=== PATIENT | male | born 1980 | race Caucasian/White ===

== ENCOUNTER 2022-05-24 11:04 | Inpatient (IN) | payer OTHER ==
[2022-05-24 11:43] VITALS: BMI 29.6
[2022-05-24] MEDS ORDERED: LOPERAMIDE HCL 2 MG CAPSULE PO PRN (13:08)
[2022-05-24] MEDS ORDERED: MAG HYDROX/AL HYDROX/SIMETH 30 ML UNIT-DOSE CUP PO PRN (13:08)
[2022-05-24] MEDS ORDERED: BISMUTH SUBSALICYLATE 524 MG/30 ML PO PRN (13:08)
[2022-05-24] MEDS ORDERED: NALOXONE HCL (KLOXXADO) 8 MG SPRAY NS PRN (13:08)
[2022-05-24] MEDS ORDERED: DICYCLOMINE HCL 10 MG CAPSULE PO PRN (13:08)
[2022-05-24] MEDS ORDERED: IBUPROFEN 600 MG TABLET (FP) PO PRN (13:08)
[2022-05-24] MEDS ORDERED: POLYETHYLENE GLYCOL (HEALTHYLAX) 3350 17 GM PACKET PO PRN (13:08)
[2022-05-24] MEDS ORDERED: IBUPROFEN 400 MG TABLET (FP) PO PRN (13:08)
[2022-05-24] MEDS ORDERED: NICOTINE 10 MG CARTRIDGE (INHALER) IH PRN (13:08)
[2022-05-24] MEDS ORDERED: ACETAMINOPHEN 325 MG TABLET (FP) PO PRN ×2 (13:08)
[2022-05-24] MEDS ORDERED: ONDANSETRON *ODT* 4 MG TABLET SL PRN (13:08)
[2022-05-24] MEDS: diazePAM 5 MG TABLET PO PRN (14:26)
[2022-05-24] MEDS ORDERED: diazePAM 5 MG TABLET ONE (14:28)
[2022-05-24] MEDS: diazePAM 5 MG TABLET PO SCH ×2 (17:59→22:24)
[2022-05-24] MEDS: MELATONIN 5 MG TABLETS PO SCH (22:23)
[2022-05-24] MEDS: hydrOXYzine PAMOATE 25 MG CAPSULE (FP) PO PRN (22:23)
[2022-05-24] MEDS: THIAMINE HCL 100 MG TABLET (FP) PO SCH (22:24)
[2022-05-24] MEDS: METHOCARBAMOL 500 MG TABLET PO PRN (22:24)
[2022-05-25] MEDS: diazePAM 5 MG TABLET PO SCH ×4 (05:26→22:34)
[2022-05-25] MEDS: diazePAM 5 MG TABLET PO PRN ×3 (08:44→19:41)
[2022-05-25] MEDS: PRENATAL VITAMINS W/ FOLIC ACID TABLET (FP) PO SCH (10:43)
[2022-05-25] MEDS ORDERED: busPIRone HCL 10 MG TABLET (FP) PO SCH (11:09)
[2022-05-25] MEDS: DEXTROAMPHETAMINE/AMPHETAMINE 10 MG CAP.ER.24H PO SCH (11:21)
[2022-05-25] MEDS: SERTRALINE HCL 50 MG TABLET (FP) PO SCH (11:21)
[2022-05-25] MEDS ORDERED: busPIRone HCL 10 MG TABLET (FP) PO ONE ×2 (11:25→13:00)
[2022-05-25] MEDS: hydrOXYzine PAMOATE 25 MG CAPSULE (FP) PO PRN (13:27)
[2022-05-25] MEDS: ALBUTEROL SO4 HFA INHALER IH PRN ×2 (17:28→22:27)
[2022-05-25] MEDS: MAGNESIUM HYDROX 2400MG/30ML ORAL SUSPENSION 30 ML CUP PO PRN (17:30)
[2022-05-25] MEDS: BENZOCAINE/MENTHOL (CHLORASEPTIC ) LOZENGE MM PRN (19:47)
[2022-05-25] MEDS: METHOCARBAMOL 500 MG TABLET PO PRN (22:30)
[2022-05-25] MEDS: MELATONIN 5 MG TABLETS PO SCH (22:30)
[2022-05-25] MEDS: THIAMINE HCL 100 MG TABLET (FP) PO SCH (22:32)
[2022-05-25] MEDS: busPIRone HCL 10 MG TABLET (FP) PO SCH (22:32)
[2022-05-26] MEDS: diazePAM 5 MG TABLET PO PRN ×4 (00:51→20:57)
[2022-05-26] MEDS: BENZOCAINE/MENTHOL (CHLORASEPTIC ) LOZENGE MM PRN ×3 (00:54→20:35)
[2022-05-26] MEDS: diazePAM 5 MG TABLET PO SCH ×3 (05:18→22:24)
[2022-05-26] MEDS: PRENATAL VITAMINS W/ FOLIC ACID TABLET (FP) PO SCH (10:14)
[2022-05-26] MEDS: DEXTROAMPHETAMINE/AMPHETAMINE 10 MG CAP.ER.24H PO SCH (10:14)
[2022-05-26] MEDS: busPIRone HCL 10 MG TABLET (FP) PO SCH ×2 (10:14→22:23)
[2022-05-26] MEDS: SERTRALINE HCL 50 MG TABLET (FP) PO SCH (10:14)
[2022-05-26] MEDS: hydrOXYzine PAMOATE 25 MG CAPSULE (FP) PO PRN ×2 (10:17→20:28)
[2022-05-26 12:16] LABS: HEMATOCRIT 44.6 % (35.4-49); HEMOGLOBIN 15.1 GM/dL (11.7-16.9); MCH 32.2 pg (25.7-33.7); MCHC 33.9 g/dl (32.0-35.9); MEAN CELL VOLUME 95.1 fl (80-96); PLATELET COUNT 301 10^3/uL (134-434); RBC 4.69 M/mm3 (4.00-5.60); RDW 13.3 % (11.9-15.9); WHITE BLOOD COUNT 6.4 K/mm3 (4.0-10.0)
[2022-05-26 12:51] LABS: ALBUMIN 3.8 g/dl (3.4-5.0)
[2022-05-26 12:52] LABS: BLOOD UREA NITROGEN 10.1 mg/dL (7-18); CALCIUM 9.2 mg/dL (8.5-10.1)
[2022-05-26 12:55] LABS: CREATININE 0.9 mg/dL (0.55-1.3)
[2022-05-26 12:56] LABS: BILIRUBIN,TOTAL 0.3 mg/dL (0.2-1); TOT PROT 7.2 g/dl (6.4-8.2)
[2022-05-26] MEDS: MAGNESIUM HYDROX 2400MG/30ML ORAL SUSPENSION 30 ML CUP PO PRN (16:58)
[2022-05-26] MEDS: guaiFENesin 600 MG TABLET.ER (FP) PO SCH (22:23)
[2022-05-26] MEDS: MELATONIN 5 MG TABLETS PO SCH (22:23)
[2022-05-26] MEDS: THIAMINE HCL 100 MG TABLET (FP) PO SCH (22:24)
[2022-05-26] MEDS: ALBUTEROL SO4 HFA INHALER IH PRN (22:27)
[2022-05-27] MEDS: diazePAM 5 MG TABLET PO PRN ×3 (01:06→11:59)
[2022-05-27] MEDS: BENZOCAINE/MENTHOL (CHLORASEPTIC ) LOZENGE MM PRN ×4 (01:06→22:26)
[2022-05-27] MEDS: diazePAM 5 MG TABLET PO SCH ×2 (05:31→17:43)
[2022-05-27] MEDS: MAGNESIUM HYDROX 2400MG/30ML ORAL SUSPENSION 30 ML CUP PO PRN (07:51)
[2022-05-27] MEDS: SERTRALINE HCL 50 MG TABLET (FP) PO SCH (10:22)
[2022-05-27] MEDS: busPIRone HCL 10 MG TABLET (FP) PO SCH ×2 (10:22→22:22)
[2022-05-27] MEDS: DEXTROAMPHETAMINE/AMPHETAMINE 10 MG CAP.ER.24H PO SCH (10:22)
[2022-05-27] MEDS: PRENATAL VITAMINS W/ FOLIC ACID TABLET (FP) PO SCH (10:22)
[2022-05-27] MEDS: guaiFENesin 600 MG TABLET.ER (FP) PO SCH ×2 (10:22→22:22)
[2022-05-27] MEDS: ALBUTEROL SO4 HFA INHALER IH PRN ×2 (11:58→22:25)
[2022-05-27 15:15] LABS: EPI CELLS 20 /uL (0-25.1); HYALINE CASTS 4 /uL (0-3.1); PH,URINE 8.5 (5.0-8.0); URINE APPEARANCE CLEAR; URINE BACTERIA 47 /uL (0-1359); URINE BILIRUBIN NEGATIVE (NEGATIVE); URINE COLOR YELLOW; URINE GLUCOSE (UA) NEGATIVE (NEGATIVE); URINE KETONE NEGATIVE (NEGATIVE); URINE LEUK ESTERASE NEGATIVE (NEGATIVE); URINE NITRITE NEGATIVE (NEGATIVE); URINE PROTEIN 1+ (NEGATIVE); URINE RBC 10 /uL (0-23.9); URINE UROBILINOGEN 0.2 mg/dL (0.2-1.0); URINE WBC 36 /uL (0-25.8)
[2022-05-27] MEDS: hydrOXYzine PAMOATE 25 MG CAPSULE (FP) PO PRN (17:46)
[2022-05-27 18:00] VITALS: RESP 19
[2022-05-27 19:51] LABS: URINE APPEARANCE CLEAR; URINE BILIRUBIN NEGATIVE (NEGATIVE); URINE COLOR YELLOW; URINE GLUCOSE (UA) NEGATIVE (NEGATIVE); URINE KETONE NEGATIVE (NEGATIVE); URINE LEUK ESTERASE NEGATIVE (NEGATIVE); URINE NITRITE NEGATIVE (NEGATIVE); URINE PROTEIN NEGATIVE (NEGATIVE); URINE UROBILINOGEN 0.2 mg/dL (0.2-1.0)
[2022-05-27] MEDS ORDERED: HYDROCORTISONE ACETATE 25 MG/SUPP.RECT RC SCH (22:00)
[2022-05-27] MEDS: THIAMINE HCL 100 MG TABLET (FP) PO SCH (22:23)
[2022-05-27] MEDS: MELATONIN 5 MG TABLETS PO SCH (22:23)
[2022-05-28] MEDS: hydrOXYzine PAMOATE 25 MG CAPSULE (FP) PO PRN (05:35)
[2022-05-28 05:50] VITALS: BP 128/70; PULSE 67; TEMP 96.8
[2022-05-28] MEDS ORDERED: diazePAM 5 MG TABLET PO ONE (06:00)
[2022-05-28] MEDS: DEXTROAMPHETAMINE/AMPHETAMINE 10 MG CAP.ER.24H PO SCH (09:05)
[2022-05-28] MEDS: guaiFENesin 600 MG TABLET.ER (FP) PO SCH (09:06)
[2022-05-28] MEDS: SERTRALINE HCL 50 MG TABLET (FP) PO SCH (09:06)
[2022-05-28] MEDS: PRENATAL VITAMINS W/ FOLIC ACID TABLET (FP) PO SCH (09:06)
[2022-05-28] MEDS: BENZOCAINE/MENTHOL (CHLORASEPTIC ) LOZENGE MM PRN (09:11)
== END 2022-05-28 09:13 | disposition home or self-care (01) | DRG 897 ==
LOC: YASAS 11:04 → Y3N 13:46
PROVIDERS: ADMIT Allergy & Immunology; ATTEND Surgery
PROC: HZ2ZZZZ Detoxification Services for Substance Abuse Treatment (ICD-10-PCS; principal; 2022-05-24)
DX: F10.230 Alcohol dependence with withdrawal, uncomplicated (principal); F13.20 Sedative, hypnotic or anxiolytic dependence, uncomplicated; F14.20 Cocaine dependence, uncomplicated; F12.20 Cannabis dependence, uncomplicated; F32.A Depression, unspecified; F90.9 Attention-deficit hyperactivity disorder, unspecified type; F43.10 Post-traumatic stress disorder, unspecified; J45.909 Unspecified asthma, uncomplicated; R63.4 Abnormal weight loss; Z68.29 Body mass index [BMI] 29.0-29.9, adult
CPT/HCPCS: 36415; 80053; 81003; 83036; 85027; 86780; 87811; 93005; 93010; C9803-CS; U0003; U0005

== ENCOUNTER 2022-08-20 11:21 | Inpatient (IN) | payer OTHER ==
[2022-08-20 11:44] VITALS: BMI 30.4
[2022-08-20] MEDS ORDERED: ONDANSETRON *ODT* 4 MG TABLET SL PRN (12:30)
[2022-08-20] MEDS ORDERED: IBUPROFEN 600 MG TABLET (FP) PO PRN (12:30)
[2022-08-20] MEDS ORDERED: MAG HYDROX/AL HYDROX/SIMETH 30 ML UNIT-DOSE CUP PO PRN (12:30)
[2022-08-20] MEDS ORDERED: ACETAMINOPHEN 325 MG TABLET (FP) PO PRN (12:30)
[2022-08-20] MEDS ORDERED: BENZONATATE 200 MG CAPSULE PO PRN (12:30)
[2022-08-20] MEDS ORDERED: guaiFENesin 600 MG TABLET.ER (FP) PO PRN (12:30)
[2022-08-20] MEDS ORDERED: NALOXONE HCL 0.4 MG/ML VIAL IM PRN (12:30)
[2022-08-20] MEDS ORDERED: chlordiazePOXIDE HCL 25 MG CAPSULE PO ONE (12:30)
[2022-08-20] MEDS ORDERED: DICYCLOMINE HCL 10 MG CAPSULE PO PRN (12:30)
[2022-08-20] MEDS ORDERED: NALOXONE HCL (KLOXXADO) 8 MG SPRAY NS PRN (12:30)
[2022-08-20] MEDS ORDERED: NICOTINE 10 MG CARTRIDGE (INHALER) IH PRN (12:30)
[2022-08-20] MEDS ORDERED: BISMUTH SUBSALICYLATE 524 MG/30 ML PO PRN (12:30)
[2022-08-20] MEDS ORDERED: IBUPROFEN 400 MG TABLET (FP) PO PRN (12:30)
[2022-08-20] MEDS ORDERED: POLYETHYLENE GLYCOL (HEALTHYLAX) 3350 17 GM PACKET PO PRN (12:30)
[2022-08-20] MEDS ORDERED: LOPERAMIDE HCL 2 MG CAPSULE PO PRN (12:30)
[2022-08-20] MEDS ORDERED: COLLOIDAL OATMEAL 1 BAR EACH TP PRN (12:30)
[2022-08-20] MEDS ORDERED: AMMONIUM LACTATE 12% LOTION 225 GM BOTTLE TP PRN (12:30)
[2022-08-20] MEDS ORDERED: ONDANSETRON *ODT* 4 MG TABLET ONE (12:38)
[2022-08-20] MEDS ORDERED: chlordiazePOXIDE HCL 25 MG CAPSULE ONE (12:54)
[2022-08-20] MEDS: ALBUTEROL SO4 HFA INHALER IH SCH ×3 (13:24→23:05)
[2022-08-20] MEDS ORDERED: DIVALPROEX SODIUM 500 MG TABLET E.C. PO ONE ×2 (15:43→22:00)
[2022-08-20 16:01] LABS: HEMATOCRIT 47.5 % (35.4-49); MCH 31.4 pg (25.7-33.7); MCHC 33.7 g/dl (32.0-35.9); MEAN CELL VOLUME 93.2 fl (80-96); MEAN PLT VOLUME 9.4 fl (7.5-11.1); PLATELET COUNT 286 10^3/uL (134-434); RBC 5.09 M/mm3 (4.00-5.60); RDW 14.2 % (11.9-15.9); WHITE BLOOD COUNT 5.1 K/mm3 (4.0-10.0)
[2022-08-20 16:14] LABS: POTASSIUM 3.9 mmol/L (3.5-5.1)
[2022-08-20 16:18] LABS: ALBUMIN 3.4 g/dl (3.4-5.0); BLOOD UREA NITROGEN 6.5 mg/dL (7-18)
[2022-08-20 16:21] LABS: CREATININE 0.8 mg/dL (0.55-1.3)
[2022-08-20 16:22] LABS: BILIRUBIN,TOTAL 0.6 mg/dL (0.2-1)
[2022-08-20 16:23] LABS: TOT PROT 6.9 g/dl (6.4-8.2)
[2022-08-20] MEDS: chlordiazePOXIDE HCL 25 MG CAPSULE PO SCH ×2 (17:46→23:04)
[2022-08-20] MEDS: THIAMINE HCL 100 MG TABLET (FP) PO SCH (23:04)
[2022-08-20] MEDS: MELATONIN 5 MG TABLETS PO SCH (23:06)
[2022-08-21] MEDS: ALBUTEROL SO4 HFA INHALER IH SCH ×6 (01:21→22:18)
[2022-08-21] MEDS: chlordiazePOXIDE HCL 25 MG CAPSULE PO SCH ×5 (05:44→22:22)
[2022-08-21] MEDS ORDERED: SERTRALINE HCL 50 MG TABLET (FP) PO SCH (10:00)
[2022-08-21] MEDS: PRENATAL VITAMINS W/ FOLIC ACID TABLET (FP) PO SCH (10:27)
[2022-08-21] MEDS: DEXTROAMPHETAMINE/AMPHETAMINE 10 MG CAP.ER.24H PO SCH (10:28)
[2022-08-21] MEDS ORDERED: TOLNAFTATE 1% CREAM 15 GM TUBE TP SCH ×2 (11:56→22:00)
[2022-08-21] MEDS ORDERED: chlordiazePOXIDE HCL 25 MG CAPSULE PO ONE (12:13)
[2022-08-21] MEDS: LACTULOSE 20 GM/30 ML UDC (FOR ORAL USE ONLY) PO SCH ×2 (14:38→22:18)
[2022-08-21] MEDS ORDERED: LORazepam 2 MG TABLET PO SCH (17:00)
[2022-08-21] MEDS ORDERED: LORazepam 1 MG TABLET PO PRN (17:06)
[2022-08-21] MEDS: METHOCARBAMOL 500 MG TABLET PO PRN (17:58)
[2022-08-21] MEDS: BENZOCAINE/MENTHOL (CHLORASEPTIC ) LOZENGE MM PRN ×2 (18:02→22:21)
[2022-08-21] MEDS: chlordiazePOXIDE HCL 25 MG CAPSULE PO PRN (20:36)
[2022-08-21] MEDS: THIAMINE HCL 100 MG TABLET (FP) PO SCH (22:19)
[2022-08-21] MEDS: DIVALPROEX SODIUM 500 MG TABLET E.C. PO SCH (22:19)
[2022-08-21] MEDS: TOLNAFTATE 1% CREAM 15 GM TUBE TP SCH (22:19)
[2022-08-21] MEDS: MELATONIN 5 MG TABLETS PO SCH (22:19)
[2022-08-22] MEDS: ALBUTEROL SO4 HFA INHALER IH SCH ×3 (01:34→10:32)
[2022-08-22] MEDS ORDERED: chlordiazePOXIDE HCL 25 MG CAPSULE PO SCH (05:00)
[2022-08-22] MEDS: chlordiazePOXIDE HCL 25 MG CAPSULE PO SCH ×4 (05:46→22:34)
[2022-08-22] MEDS: LACTULOSE 20 GM/30 ML UDC (FOR ORAL USE ONLY) PO SCH ×3 (05:47→22:33)
[2022-08-22] MEDS ORDERED: ERGOCALCIFEROL (VIT D2) 50,000 UNIT (1.25 MG) CAPSULE PO ONE (09:37)
[2022-08-22] MEDS: PRENATAL VITAMINS W/ FOLIC ACID TABLET (FP) PO SCH (10:32)
[2022-08-22] MEDS: SERTRALINE HCL 50 MG TABLET (FP) PO SCH (10:32)
[2022-08-22] MEDS: TOLNAFTATE 1% CREAM 15 GM TUBE TP SCH ×2 (10:32→22:34)
[2022-08-22] MEDS: DEXTROAMPHETAMINE/AMPHETAMINE 10 MG CAP.ER.24H PO SCH (10:33)
[2022-08-22] MEDS ORDERED: ALBUTEROL SO4 HFA INHALER IH PRN (12:07)
[2022-08-22] MEDS: MAGNESIUM HYDROX 2400MG/30ML ORAL SUSPENSION 30 ML CUP PO PRN ×2 (13:24→19:12)
[2022-08-22] MEDS ORDERED: HYDROCORTISONE ACETATE 25 MG/SUPP.RECT RC ONE (13:41)
[2022-08-22] MEDS: KETOCONAZOLE 2% CREAM - 60GM TUBE TP SCH (14:56)
[2022-08-22 16:01] LABS: HIV INTERPRETATION NEGATIVE (NEGATIVE)
[2022-08-22] MEDS: METHOCARBAMOL 500 MG TABLET PO PRN (19:16)
[2022-08-22] MEDS: hydrOXYzine PAMOATE 25 MG CAPSULE (FP) PO PRN (19:16)
[2022-08-22] MEDS: chlordiazePOXIDE HCL 25 MG CAPSULE PO PRN (20:04)
[2022-08-22] MEDS: THIAMINE HCL 100 MG TABLET (FP) PO SCH (22:33)
[2022-08-22] MEDS: MELATONIN 5 MG TABLETS PO SCH (22:33)
[2022-08-22] MEDS: DIVALPROEX SODIUM 500 MG TABLET E.C. PO SCH (22:33)
[2022-08-23] MEDS ORDERED: LORazepam 1 MG TABLET PO SCH (05:00)
[2022-08-23] MEDS ORDERED: chlordiazePOXIDE HCL 10 MG CAPSULE PO SCH (05:00)
[2022-08-23] MEDS: chlordiazePOXIDE HCL 10 MG CAPSULE PO SCH ×4 (05:38→22:31)
[2022-08-23] MEDS: LACTULOSE 20 GM/30 ML UDC (FOR ORAL USE ONLY) PO SCH ×3 (05:38→22:29)
[2022-08-23] MEDS: chlordiazePOXIDE HCL 25 MG CAPSULE PO PRN ×2 (08:42→19:15)
[2022-08-23] MEDS: DEXTROAMPHETAMINE/AMPHETAMINE 10 MG CAP.ER.24H PO SCH (10:39)
[2022-08-23] MEDS: PRENATAL VITAMINS W/ FOLIC ACID TABLET (FP) PO SCH (10:39)
[2022-08-23] MEDS: SERTRALINE HCL 50 MG TABLET (FP) PO SCH (10:39)
[2022-08-23] MEDS: TOLNAFTATE 1% CREAM 15 GM TUBE TP SCH ×2 (10:42→22:38)
[2022-08-23] MEDS: KETOCONAZOLE 2% CREAM - 60GM TUBE TP SCH (10:42)
[2022-08-23] MEDS ORDERED: PNEUMOC 20-VAL CONJ-DIP CRM/PF 0.5 ML SYRINGE IM ONE (12:00)
[2022-08-23] MEDS: MAGNESIUM HYDROX 2400MG/30ML ORAL SUSPENSION 30 ML CUP PO PRN ×2 (13:22→18:44)
[2022-08-23] MEDS: hydrOXYzine PAMOATE 25 MG CAPSULE (FP) PO PRN ×2 (17:15→22:32)
[2022-08-23] MEDS: METHOCARBAMOL 500 MG TABLET PO PRN (17:15)
[2022-08-23] MEDS: MELATONIN 5 MG TABLETS PO SCH (22:30)
[2022-08-23] MEDS: DIVALPROEX SODIUM 500 MG TABLET E.C. PO SCH (22:30)
[2022-08-23] MEDS: THIAMINE HCL 100 MG TABLET (FP) PO SCH (22:30)
[2022-08-24] MEDS ORDERED: LORazepam 0.5 MG TABLET PO PRN
[2022-08-24] MEDS ORDERED: LORazepam 0.5 MG TABLET PO SCH (05:00)
[2022-08-24] MEDS ORDERED: chlordiazePOXIDE HCL 10 MG CAPSULE PO SCH (05:00)
[2022-08-24] MEDS: LACTULOSE 20 GM/30 ML UDC (FOR ORAL USE ONLY) PO SCH ×3 (05:47→21:43)
[2022-08-24] MEDS: chlordiazePOXIDE HCL 10 MG CAPSULE PO SCH ×2 (05:47→18:03)
[2022-08-24] MEDS: chlordiazePOXIDE HCL 10 MG CAPSULE PO PRN ×3 (08:27→19:51)
[2022-08-24] MEDS: MAGNESIUM HYDROX 2400MG/30ML ORAL SUSPENSION 30 ML CUP PO PRN (08:32)
[2022-08-24] MEDS: BENZOCAINE/MENTHOL (CHLORASEPTIC ) LOZENGE MM PRN ×2 (08:32→19:59)
[2022-08-24] MEDS: hydrOXYzine PAMOATE 25 MG CAPSULE (FP) PO PRN ×2 (10:04→21:44)
[2022-08-24] MEDS: METHOCARBAMOL 500 MG TABLET PO PRN ×2 (10:04→21:45)
[2022-08-24] MEDS: PRENATAL VITAMINS W/ FOLIC ACID TABLET (FP) PO SCH (10:04)
[2022-08-24] MEDS: DEXTROAMPHETAMINE/AMPHETAMINE 10 MG CAP.ER.24H PO SCH (10:04)
[2022-08-24] MEDS: SERTRALINE HCL 50 MG TABLET (FP) PO SCH (10:04)
[2022-08-24] MEDS: KETOCONAZOLE 2% CREAM - 60GM TUBE TP SCH (10:05)
[2022-08-24] MEDS: TOLNAFTATE 1% CREAM 15 GM TUBE TP SCH ×2 (10:33→21:49)
[2022-08-24] MEDS: THIAMINE HCL 100 MG TABLET (FP) PO SCH (21:44)
[2022-08-24] MEDS: DIVALPROEX SODIUM 500 MG TABLET E.C. PO SCH (21:44)
[2022-08-24] MEDS: MELATONIN 5 MG TABLETS PO SCH (21:49)
[2022-08-25] MEDS ORDERED: LORazepam 0.5 MG TABLET PO ONE (05:00)
[2022-08-25] MEDS ORDERED: chlordiazePOXIDE HCL 10 MG CAPSULE PO ONE ×2 (05:00)
[2022-08-25] MEDS: LACTULOSE 20 GM/30 ML UDC (FOR ORAL USE ONLY) PO SCH ×2 (05:46→13:52)
[2022-08-25] MEDS: MAGNESIUM HYDROX 2400MG/30ML ORAL SUSPENSION 30 ML CUP PO PRN (08:46)
[2022-08-25 08:54] VITALS: RESP 18
[2022-08-25] MEDS: SERTRALINE HCL 50 MG TABLET (FP) PO SCH (09:47)
[2022-08-25] MEDS: METHOCARBAMOL 500 MG TABLET PO PRN (09:47)
[2022-08-25] MEDS: hydrOXYzine PAMOATE 25 MG CAPSULE (FP) PO PRN (09:47)
[2022-08-25] MEDS: DEXTROAMPHETAMINE/AMPHETAMINE 10 MG CAP.ER.24H PO SCH (09:47)
[2022-08-25] MEDS: PRENATAL VITAMINS W/ FOLIC ACID TABLET (FP) PO SCH (09:48)
[2022-08-25] MEDS: TOLNAFTATE 1% CREAM 15 GM TUBE TP SCH (09:49)
[2022-08-25] MEDS: KETOCONAZOLE 2% CREAM - 60GM TUBE TP SCH (09:49)
[2022-08-25 13:13] VITALS: BP 121/76; PULSE 78; TEMP 97.4
== END 2022-08-25 16:45 | disposition home or self-care (01) | DRG 897 ==
LOC: YASAS 11:21 → Y3N 12:33
PROVIDERS: ADMIT Allergy & Immunology; ATTEND Surgery
PROC: HZ2ZZZZ Detoxification Services for Substance Abuse Treatment (ICD-10-PCS; principal; 2022-08-20)
DX: F10.230 Alcohol dependence with withdrawal, uncomplicated (principal); F31.9 Bipolar disorder, unspecified; F19.24 Other psychoactive substance dependence with psychoactive substance-induced mood disorder; F90.9 Attention-deficit hyperactivity disorder, unspecified type; B35.3 Tinea pedis; B35.4 Tinea corporis; E78.5 Hyperlipidemia, unspecified; R79.89 Other specified abnormal findings of blood chemistry; Z86.59 Personal history of other mental and behavioral disorders; Z86.79 Personal history of other diseases of the circulatory system
CPT/HCPCS: 36415; 80053; 80164; 82140; 85027; 86780; 87389; 87491; 87522; 87591; 87661; 90677; C9803-CS; Q0162; U0003; U0005

== ENCOUNTER 2022-09-24 16:27 | Inpatient (IN) | payer OTHER ==
[2022-09-24 16:57] VITALS: BMI 28.4
[2022-09-24] MEDS ORDERED: ONDANSETRON *ODT* 4 MG TABLET SL PRN (19:38)
[2022-09-24] MEDS ORDERED: ACETAMINOPHEN 325 MG TABLET (FP) PO PRN (19:38)
[2022-09-24] MEDS ORDERED: BENZOCAINE/MENTHOL (CHLORASEPTIC ) LOZENGE MM PRN (19:38)
[2022-09-24] MEDS ORDERED: IBUPROFEN 600 MG TABLET (FP) PO PRN (19:38)
[2022-09-24] MEDS ORDERED: NALOXONE HCL 0.4 MG/ML VIAL IM PRN (19:38)
[2022-09-24] MEDS ORDERED: NALOXONE HCL (KLOXXADO) 8 MG SPRAY NS PRN (19:38)
[2022-09-24] MEDS ORDERED: DICYCLOMINE HCL 10 MG CAPSULE PO PRN (19:38)
[2022-09-24] MEDS ORDERED: POLYETHYLENE GLYCOL (HEALTHYLAX) 3350 17 GM PACKET PO PRN (19:38)
[2022-09-24] MEDS ORDERED: LOPERAMIDE HCL 2 MG CAPSULE PO PRN (19:38)
[2022-09-24] MEDS ORDERED: BISMUTH SUBSALICYLATE 524 MG/30 ML PO PRN (19:38)
[2022-09-24] MEDS ORDERED: NICOTINE 10 MG CARTRIDGE (INHALER) IH PRN (19:38)
[2022-09-24] MEDS ORDERED: IBUPROFEN 400 MG TABLET (FP) PO PRN (19:38)
[2022-09-24] MEDS ORDERED: MAG HYDROX/AL HYDROX/SIMETH 30 ML UNIT-DOSE CUP PO PRN (19:38)
[2022-09-24] MEDS ORDERED: hydrOXYzine PAMOATE 25 MG CAPSULE (FP) PO ONE (20:15)
[2022-09-24] MEDS ORDERED: chlordiazePOXIDE HCL 25 MG CAPSULE ONE (20:15)
[2022-09-24] MEDS: hydrOXYzine PAMOATE 25 MG CAPSULE (FP) PO PRN (20:17)
[2022-09-24] MEDS: chlordiazePOXIDE HCL 25 MG CAPSULE PO PRN (20:17)
[2022-09-24] MEDS: chlordiazePOXIDE HCL 25 MG CAPSULE PO SCH (22:08)
[2022-09-24] MEDS: MELATONIN 5 MG TABLETS PO SCH (22:08)
[2022-09-24] MEDS: THIAMINE HCL 100 MG TABLET (FP) PO SCH (22:08)
[2022-09-24] MEDS: METHOCARBAMOL 500 MG TABLET PO PRN (22:09)
[2022-09-25] MEDS: chlordiazePOXIDE HCL 25 MG CAPSULE PO SCH ×4 (05:25→22:10)
[2022-09-25] MEDS: hydrOXYzine PAMOATE 25 MG CAPSULE (FP) PO PRN ×2 (05:26→22:14)
[2022-09-25] MEDS: chlordiazePOXIDE HCL 25 MG CAPSULE PO PRN ×3 (08:33→19:33)
[2022-09-25] MEDS: PRENATAL VITAMINS W/ FOLIC ACID TABLET (FP) PO SCH (10:15)
[2022-09-25 12:02] LABS: HEMATOCRIT 44.2 % (35.4-49); MCH 31.8 pg (25.7-33.7); MCHC 33.9 g/dl (32.0-35.9); MEAN CELL VOLUME 93.9 fl (80-96); MEAN PLT VOLUME 9.9 fl (7.5-11.1); PLATELET COUNT 275 10^3/uL (134-434); RBC 4.71 M/mm3 (4.00-5.60)
[2022-09-25 12:35] LABS: POTASSIUM 4.2 mmol/L (3.5-5.1)
[2022-09-25 12:38] LABS: ALBUMIN 2.9 g/dl (3.4-5.0); CALCIUM 8.7 mg/dL (8.5-10.1)
[2022-09-25 12:41] LABS: CREATININE 0.9 mg/dL (0.55-1.3)
[2022-09-25 12:43] LABS: BILIRUBIN,TOTAL 0.3 mg/dL (0.2-1); TOT PROT 6.1 g/dl (6.4-8.2)
[2022-09-25 15:56] LABS: HIV INTERPRETATION NEGATIVE (NEGATIVE)
[2022-09-25] MEDS: BENZONATATE 200 MG CAPSULE PO PRN (17:28)
[2022-09-25] MEDS: ALBUTEROL SO4 HFA INHALER IH PRN (17:30)
[2022-09-25] MEDS: MAGNESIUM HYDROX 2400MG/30ML ORAL SUSPENSION 30 ML CUP PO PRN (18:28)
[2022-09-25] MEDS: TOLNAFTATE 1% CREAM 15 GM TUBE TP SCH (22:09)
[2022-09-25] MEDS: GABAPENTIN 300 MG CAPSULE PO SCH (22:11)
[2022-09-25] MEDS: THIAMINE HCL 100 MG TABLET (FP) PO SCH (22:11)
[2022-09-25] MEDS: MELATONIN 5 MG TABLETS PO SCH (22:11)
[2022-09-25] MEDS: guaiFENesin 600 MG TABLET.ER (FP) PO PRN (22:11)
[2022-09-25] MEDS: METHOCARBAMOL 500 MG TABLET PO PRN (22:14)
[2022-09-26] MEDS: chlordiazePOXIDE HCL 25 MG CAPSULE PO SCH ×4 (05:22→22:15)
[2022-09-26] MEDS: chlordiazePOXIDE HCL 25 MG CAPSULE PO PRN ×3 (08:35→19:41)
[2022-09-26] MEDS ORDERED: DEXTROAMPHETAMINE/AMPHETAMINE 10 MG CAP.ER.24H PO SCH (10:00)
[2022-09-26] MEDS: TOLNAFTATE 1% CREAM 15 GM TUBE TP SCH ×2 (10:11→22:14)
[2022-09-26] MEDS: SERTRALINE HCL 50 MG TABLET (FP) PO SCH (10:12)
[2022-09-26] MEDS: PRENATAL VITAMINS W/ FOLIC ACID TABLET (FP) PO SCH (10:12)
[2022-09-26] MEDS: DEXTROAMPHETAMINE/AMPHETAMINE 10 MG CAP.ER.24H PO SCH (10:12)
[2022-09-26] MEDS: guaiFENesin 600 MG TABLET.ER (FP) PO PRN ×2 (10:15→19:24)
[2022-09-26] MEDS: MAGNESIUM HYDROX 2400MG/30ML ORAL SUSPENSION 30 ML CUP PO PRN (10:46)
[2022-09-26] MEDS: ALBUTEROL SO4 HFA INHALER IH PRN ×2 (10:46→19:42)
[2022-09-26] MEDS: BENZONATATE 200 MG CAPSULE PO PRN ×2 (10:46→19:24)
[2022-09-26] MEDS: BUDESONIDE/FORMETEROL FUMARATE 80/4.5 mcg INHALER IH SCH ×2 (10:52→22:15)
[2022-09-26] MEDS: hydrOXYzine PAMOATE 25 MG CAPSULE (FP) PO PRN ×2 (13:55→22:13)
[2022-09-26] MEDS: LACTULOSE 20 GM/30 ML UDC (FOR ORAL USE ONLY) PO SCH ×2 (14:52→22:15)
[2022-09-26] MEDS ORDERED: BENZOCAINE/MENTH/CETYLPYRD CL 1 EACH LOZENGE MM PRN (19:56)
[2022-09-26] MEDS ORDERED: HYDROCORTISONE ACETATE 25 MG/SUPP.RECT RC SCH (22:00)
[2022-09-26] MEDS: METHOCARBAMOL 500 MG TABLET PO PRN (22:13)
[2022-09-26] MEDS: MELATONIN 5 MG TABLETS PO SCH (22:15)
[2022-09-26] MEDS: GABAPENTIN 300 MG CAPSULE PO SCH (22:15)
[2022-09-26] MEDS: THIAMINE HCL 100 MG TABLET (FP) PO SCH (22:15)
[2022-09-27] MEDS: chlordiazePOXIDE HCL 10 MG CAPSULE PO PRN ×2 (00:40→13:23)
[2022-09-27] MEDS: chlordiazePOXIDE HCL 10 MG CAPSULE PO SCH ×3 (05:22→17:34)
[2022-09-27] MEDS: LACTULOSE 20 GM/30 ML UDC (FOR ORAL USE ONLY) PO SCH ×2 (05:22→13:35)
[2022-09-27 08:59] VITALS: RESP 18
[2022-09-27] MEDS: SERTRALINE HCL 50 MG TABLET (FP) PO SCH (10:06)
[2022-09-27] MEDS: DEXTROAMPHETAMINE/AMPHETAMINE 10 MG CAP.ER.24H PO SCH (10:06)
[2022-09-27] MEDS: BUDESONIDE/FORMETEROL FUMARATE 80/4.5 mcg INHALER IH SCH (10:06)
[2022-09-27] MEDS: ALBUTEROL SO4 HFA INHALER IH PRN (10:06)
[2022-09-27] MEDS: PRENATAL VITAMINS W/ FOLIC ACID TABLET (FP) PO SCH (10:07)
[2022-09-27] MEDS: TOLNAFTATE 1% CREAM 15 GM TUBE TP SCH (10:07)
[2022-09-27] MEDS ORDERED: BENZONATATE 200 MG CAPSULE PO PRN (13:23)
[2022-09-27] MEDS: METHOCARBAMOL 500 MG TABLET PO PRN (13:23)
[2022-09-27] MEDS: hydrOXYzine PAMOATE 25 MG CAPSULE (FP) PO PRN (13:23)
[2022-09-27] MEDS: MAGNESIUM HYDROX 2400MG/30ML ORAL SUSPENSION 30 ML CUP PO PRN (15:12)
[2022-09-27] MEDS ORDERED: TOLNAFTATE 1% CREAM 15 GM TUBE TP SCH (15:19)
[2022-09-27] MEDS ORDERED: guaiFENesin 600 MG TABLET.ER (FP) PO SCH ×2 (15:30→22:00)
[2022-09-27 21:16] VITALS: BP 139/82; PULSE 80; TEMP 97.3
[2022-09-28] MEDS ORDERED: chlordiazePOXIDE HCL 10 MG CAPSULE PO SCH (05:00)
[2022-09-29] MEDS ORDERED: chlordiazePOXIDE HCL 10 MG CAPSULE PO ONE (05:00)
== END 2022-09-27 19:35 | disposition left against medical advice (07) | DRG 894 ==
LOC: YASAS 16:27 → Y3N 20:18
PROVIDERS: ADMIT Allergy & Immunology; ATTEND Surgery
PROC: HZ2ZZZZ Detoxification Services for Substance Abuse Treatment (ICD-10-PCS; principal; 2022-09-24)
DX: F10.230 Alcohol dependence with withdrawal, uncomplicated (principal); F13.20 Sedative, hypnotic or anxiolytic dependence, uncomplicated; F14.20 Cocaine dependence, uncomplicated; F12.10 Cannabis abuse, uncomplicated; F19.24 Other psychoactive substance dependence with psychoactive substance-induced mood disorder; F25.9 Schizoaffective disorder, unspecified; F43.10 Post-traumatic stress disorder, unspecified; G47.00 Insomnia, unspecified; R79.89 Other specified abnormal findings of blood chemistry; Z86.79 Personal history of other diseases of the circulatory system; Z87.891 Personal history of nicotine dependence; Z91.199 Patient's noncompliance with other medical treatment and regimen due to unspecified reason
CPT/HCPCS: 26055; 36415; 80053; 82140; 85027; 86780; 86803; 87389; 87491; 87591; 87635; 87661; 87811

== ENCOUNTER 2022-12-13 12:46 | Inpatient (IN) | payer OTHER ==
[2022-12-13 13:54] VITALS: BMI 33.1
[2022-12-13] MEDS ORDERED: DICYCLOMINE HCL 10 MG CAPSULE PO PRN (14:54)
[2022-12-13] MEDS ORDERED: NALOXONE HCL (KLOXXADO) 8 MG SPRAY NS PRN (14:54)
[2022-12-13] MEDS ORDERED: BENZONATATE 200 MG CAPSULE PO PRN (14:54)
[2022-12-13] MEDS ORDERED: guaiFENesin 600 MG TABLET.ER (FP) PO PRN (14:54)
[2022-12-13] MEDS ORDERED: ACETAMINOPHEN 325 MG TABLET (FP) PO PRN (14:54)
[2022-12-13] MEDS ORDERED: POLYETHYLENE GLYCOL (HEALTHYLAX) 3350 17 GM PACKET PO PRN (14:54)
[2022-12-13] MEDS ORDERED: ONDANSETRON *ODT* 4 MG TABLET SL PRN (14:54)
[2022-12-13] MEDS ORDERED: NALOXONE HCL 0.4 MG/ML VIAL IM PRN (14:54)
[2022-12-13] MEDS ORDERED: IBUPROFEN 600 MG TABLET (FP) PO PRN (14:54)
[2022-12-13] MEDS ORDERED: LOPERAMIDE HCL 2 MG CAPSULE PO PRN (14:54)
[2022-12-13] MEDS ORDERED: IBUPROFEN 400 MG TABLET (FP) PO PRN (14:54)
[2022-12-13] MEDS ORDERED: BISMUTH SUBSALICYLATE 524 MG/30 ML PO PRN (14:54)
[2022-12-13] MEDS ORDERED: chlordiazePOXIDE HCL 25 MG CAPSULE ONE (16:38)
[2022-12-13] MEDS: chlordiazePOXIDE HCL 25 MG CAPSULE PO SCH ×2 (16:41→22:28)
[2022-12-13] MEDS: chlordiazePOXIDE HCL 25 MG CAPSULE PO PRN (19:40)
[2022-12-13] MEDS: MELATONIN 5 MG TABLETS PO SCH (22:28)
[2022-12-13] MEDS: THIAMINE HCL 100 MG TABLET (FP) PO SCH (22:28)
[2022-12-13] MEDS: BUDESONIDE/FORMETEROL FUMARATE 80/4.5 mcg INHALER IH SCH (22:30)
[2022-12-14] MEDS: chlordiazePOXIDE HCL 25 MG CAPSULE PO SCH ×4 (04:00→23:06)
[2022-12-14] MEDS: METHOCARBAMOL 500 MG TABLET PO PRN ×2 (04:01→23:06)
[2022-12-14] MEDS: hydrOXYzine PAMOATE 25 MG CAPSULE (FP) PO PRN ×2 (04:01→20:38)
[2022-12-14] MEDS: MAGNESIUM HYDROX 2400MG/30ML ORAL SUSPENSION 30 ML CUP PO PRN ×2 (04:06→23:11)
[2022-12-14] MEDS: PRENATAL VITAMINS W/ FOLIC ACID TABLET (FP) PO SCH (10:32)
[2022-12-14] MEDS: BUDESONIDE/FORMETEROL FUMARATE 80/4.5 mcg INHALER IH SCH ×2 (10:32→23:07)
[2022-12-14] MEDS: CLOTRIMAZOLE 1% CREAM TP SCH ×2 (10:38→23:07)
[2022-12-14 11:55] LABS: POTASSIUM 4.3 mmol/L (3.5-5.1)
[2022-12-14 11:57] LABS: HEMATOCRIT 38.5 % (35.4-49); HEMOGLOBIN 13.6 GM/dL (11.7-16.9); MCH 32.5 pg (25.7-33.7); MCHC 35.3 g/dl (32.0-35.9); MEAN CELL VOLUME 92.1 fl (80-96); MEAN PLT VOLUME 9.5 fl (7.5-11.1); PLATELET COUNT 176 10^3/uL (134-434); RBC 4.18 M/mm3 (4.00-5.60); WHITE BLOOD COUNT 3.2 K/mm3 (4.0-10.0)
[2022-12-14 12:02] LABS: CALCIUM 7.9 mg/dL (8.5-10.1)
[2022-12-14 12:03] LABS: ALBUMIN 3.1 g/dl (3.4-5.0); BLOOD UREA NITROGEN 8.7 mg/dL (7-18)
[2022-12-14 12:06] LABS: CREATININE 0.7 mg/dL (0.55-1.3)
[2022-12-14 12:07] LABS: TOT PROT 5.9 g/dl (6.4-8.2)
[2022-12-14 12:08] LABS: BILIRUBIN,TOTAL 0.4 mg/dL (0.2-1)
[2022-12-14] MEDS: guaiFENesin 200 MG/10 ML 10 ML UNIT-DOSE CUPS PO PRN ×2 (12:12→20:47)
[2022-12-14] MEDS: chlordiazePOXIDE HCL 25 MG CAPSULE PO PRN (20:42)
[2022-12-14] MEDS: THIAMINE HCL 100 MG TABLET (FP) PO SCH (23:06)
[2022-12-14] MEDS: MELATONIN 5 MG TABLETS PO SCH (23:06)
[2022-12-15] MEDS: chlordiazePOXIDE HCL 25 MG CAPSULE PO SCH ×4 (05:19→22:13)
[2022-12-15] MEDS: guaiFENesin 200 MG/10 ML 10 ML UNIT-DOSE CUPS PO PRN (05:22)
[2022-12-15] MEDS: hydrOXYzine PAMOATE 25 MG CAPSULE (FP) PO PRN ×2 (05:22→17:16)
[2022-12-15] MEDS: chlordiazePOXIDE HCL 25 MG CAPSULE PO PRN ×3 (07:58→19:44)
[2022-12-15] MEDS: MAG HYDROX/AL HYDROX/SIMETH 30 ML UNIT-DOSE CUP PO PRN (07:59)
[2022-12-15] MEDS: BUDESONIDE/FORMETEROL FUMARATE 80/4.5 mcg INHALER IH SCH ×2 (10:16→22:14)
[2022-12-15] MEDS: PRENATAL VITAMINS W/ FOLIC ACID TABLET (FP) PO SCH (10:17)
[2022-12-15] MEDS: DEXTROAMPHETAMINE/AMPHETAMINE 10 MG CAP.ER.24H PO SCH (10:17)
[2022-12-15] MEDS: CLOTRIMAZOLE 1% CREAM TP SCH ×2 (10:17→22:14)
[2022-12-15] MEDS: SERTRALINE HCL 50 MG TABLET (FP) PO SCH (10:17)
[2022-12-15] MEDS: METHOCARBAMOL 500 MG TABLET PO PRN ×2 (10:21→19:10)
[2022-12-15] MEDS: BREXPIPRAZOLE 1 MG PO SCH (11:31)
[2022-12-15] MEDS: BENZOCAINE/MENTHOL (CHLORASEPTIC ) LOZENGE MM PRN (12:22)
[2022-12-15 13:26] LABS: HIV INTERPRETATION NEGATIVE (NEGATIVE)
[2022-12-15] MEDS: guaiFENesin 600 MG TABLET.ER (FP) PO PRN ×2 (14:31→22:20)
[2022-12-15] MEDS: OMEGA-3 ACID ETHYL ESTERS (FATTY-ACIDS) 1 GM CAPSULE (FP) PO SCH ×2 (14:31→22:16)
[2022-12-15] MEDS: ALBUTEROL SO4 HFA INHALER IH PRN ×2 (14:33→22:15)
[2022-12-15] MEDS: MAGNESIUM HYDROX 2400MG/30ML ORAL SUSPENSION 30 ML CUP PO PRN (15:28)
[2022-12-15] MEDS ORDERED: guaiFENesin 600 MG TABLET.ER (FP) PO SCH (22:00)
[2022-12-15] MEDS: GABAPENTIN 300 MG CAPSULE PO SCH (22:13)
[2022-12-15] MEDS: THIAMINE HCL 100 MG TABLET (FP) PO SCH (22:13)
[2022-12-15] MEDS: MELATONIN 5 MG TABLETS PO SCH (22:14)
[2022-12-16] MEDS: chlordiazePOXIDE HCL 10 MG CAPSULE PO PRN ×2 (00:54→14:55)
[2022-12-16] MEDS: guaiFENesin 600 MG TABLET.ER (FP) PO PRN ×3 (00:57→17:12)
[2022-12-16] MEDS: MAG HYDROX/AL HYDROX/SIMETH 30 ML UNIT-DOSE CUP PO PRN (00:57)
[2022-12-16] MEDS: chlordiazePOXIDE HCL 10 MG CAPSULE PO SCH ×4 (04:35→22:13)
[2022-12-16] MEDS: METHOCARBAMOL 500 MG TABLET PO PRN ×2 (04:37→19:44)
[2022-12-16] MEDS: hydrOXYzine PAMOATE 25 MG CAPSULE (FP) PO PRN ×2 (04:37→17:12)
[2022-12-16] MEDS: SERTRALINE HCL 50 MG TABLET (FP) PO SCH (10:10)
[2022-12-16] MEDS: PRENATAL VITAMINS W/ FOLIC ACID TABLET (FP) PO SCH (10:11)
[2022-12-16] MEDS: DEXTROAMPHETAMINE/AMPHETAMINE 10 MG CAP.ER.24H PO SCH (10:11)
[2022-12-16] MEDS: OMEGA-3 ACID ETHYL ESTERS (FATTY-ACIDS) 1 GM CAPSULE (FP) PO SCH ×2 (10:11→22:12)
[2022-12-16] MEDS: BREXPIPRAZOLE 1 MG PO SCH (10:15)
[2022-12-16] MEDS: CLOTRIMAZOLE 1% CREAM TP SCH ×2 (10:15→22:14)
[2022-12-16] MEDS: MAGNESIUM HYDROX 2400MG/30ML ORAL SUSPENSION 30 ML CUP PO PRN (10:18)
[2022-12-16] MEDS: BUDESONIDE/FORMETEROL FUMARATE 80/4.5 mcg INHALER IH SCH ×2 (10:20→22:14)
[2022-12-16] MEDS: BENZOCAINE/MENTHOL (CHLORASEPTIC ) LOZENGE MM PRN (10:52)
[2022-12-16] MEDS: ALBUTEROL SO4 HFA INHALER IH PRN (18:09)
[2022-12-16] MEDS: THIAMINE HCL 100 MG TABLET (FP) PO SCH (22:12)
[2022-12-16] MEDS: GABAPENTIN 300 MG CAPSULE PO SCH (22:12)
[2022-12-16] MEDS: MELATONIN 5 MG TABLETS PO SCH (22:13)
[2022-12-17] MEDS: chlordiazePOXIDE HCL 10 MG CAPSULE PO SCH ×2 (05:03→17:08)
[2022-12-17] MEDS: guaiFENesin 600 MG TABLET.ER (FP) PO PRN ×2 (05:26→17:10)
[2022-12-17] MEDS: ALBUTEROL SO4 HFA INHALER IH PRN (05:29)
[2022-12-17] MEDS: BUDESONIDE/FORMETEROL FUMARATE 80/4.5 mcg INHALER IH SCH (10:05)
[2022-12-17] MEDS: OMEGA-3 ACID ETHYL ESTERS (FATTY-ACIDS) 1 GM CAPSULE (FP) PO SCH (10:06)
[2022-12-17] MEDS: PRENATAL VITAMINS W/ FOLIC ACID TABLET (FP) PO SCH (10:06)
[2022-12-17] MEDS: DEXTROAMPHETAMINE/AMPHETAMINE 10 MG CAP.ER.24H PO SCH (10:06)
[2022-12-17] MEDS: SERTRALINE HCL 50 MG TABLET (FP) PO SCH (10:06)
[2022-12-17] MEDS: BREXPIPRAZOLE 1 MG PO SCH (10:07)
[2022-12-17] MEDS: CLOTRIMAZOLE 1% CREAM TP SCH (10:10)
[2022-12-17] MEDS: BENZOCAINE/MENTHOL (CHLORASEPTIC ) LOZENGE MM PRN (11:21)
[2022-12-17] MEDS: METHOCARBAMOL 500 MG TABLET PO PRN (11:21)
[2022-12-17] MEDS: MAGNESIUM HYDROX 2400MG/30ML ORAL SUSPENSION 30 ML CUP PO PRN (11:21)
[2022-12-17] MEDS: hydrOXYzine PAMOATE 25 MG CAPSULE (FP) PO PRN (11:22)
[2022-12-17 17:14] VITALS: BP 121/69; PULSE 82; RESP 17; TEMP 98
[2022-12-18] MEDS ORDERED: chlordiazePOXIDE HCL 10 MG CAPSULE PO ONE (05:00)
== END 2022-12-17 19:55 | disposition home or self-care (01) | DRG 897 ==
LOC: YASAS 12:46 → Y6N 16:44
PROVIDERS: ADMIT Allergy & Immunology; ATTEND Surgery
PROC: HZ2ZZZZ Detoxification Services for Substance Abuse Treatment (ICD-10-PCS; principal; 2022-12-13)
DX: F10.230 Alcohol dependence with withdrawal, uncomplicated (principal); F13.230 Sedative, hypnotic or anxiolytic dependence with withdrawal, uncomplicated; F10.282 Alcohol dependence with alcohol-induced sleep disorder; F31.9 Bipolar disorder, unspecified; F41.1 Generalized anxiety disorder; F43.10 Post-traumatic stress disorder, unspecified; E78.5 Hyperlipidemia, unspecified; J45.20 Mild intermittent asthma, uncomplicated; M54.50 Low back pain, unspecified; G89.29 Other chronic pain; B35.3 Tinea pedis; Z86.79 Personal history of other diseases of the circulatory system; Z87.891 Personal history of nicotine dependence
CPT/HCPCS: 36415; 80053; 85027; 86780; 86803; 87389; 87491; 87591; 87635; 87661

== ENCOUNTER 2023-03-13 18:37 | Inpatient (IN) | payer OTHER ==
[2023-03-13 20:18] VITALS: BMI 30.4
[2023-03-14] MEDS ORDERED: POLYETHYLENE GLYCOL (HEALTHYLAX) 3350 17 GM PACKET PO PRN (03:05)
[2023-03-14] MEDS ORDERED: BISMUTH SUBSALICYLATE 524 MG/30 ML PO PRN (03:05)
[2023-03-14] MEDS ORDERED: guaiFENesin 600 MG TABLET.ER (FP) PO PRN (03:05)
[2023-03-14] MEDS ORDERED: MAG HYDROX/AL HYDROX/SIMETH 30 ML UNIT-DOSE CUP PO PRN (03:05)
[2023-03-14] MEDS ORDERED: NALOXONE HCL 0.4 MG/ML VIAL IM PRN (03:05)
[2023-03-14] MEDS ORDERED: ACETAMINOPHEN 325 MG TABLET (FP) PO PRN (03:05)
[2023-03-14] MEDS ORDERED: IBUPROFEN 400 MG TABLET (FP) PO PRN (03:05)
[2023-03-14] MEDS ORDERED: ONDANSETRON *ODT* 4 MG TABLET SL PRN (03:05)
[2023-03-14] MEDS ORDERED: DICYCLOMINE HCL 10 MG CAPSULE PO PRN (03:05)
[2023-03-14] MEDS ORDERED: BENZONATATE 200 MG CAPSULE PO PRN (03:05)
[2023-03-14] MEDS ORDERED: LOPERAMIDE HCL 2 MG CAPSULE PO PRN (03:05)
[2023-03-14] MEDS ORDERED: NALOXONE HCL (KLOXXADO) 8 MG SPRAY NS PRN (03:05)
[2023-03-14] MEDS ORDERED: BENZOCAINE/MENTHOL (CHLORASEPTIC ) LOZENGE MM PRN (03:05)
[2023-03-14] MEDS: METHOCARBAMOL 500 MG TABLET PO PRN ×2 (10:32→22:23)
[2023-03-14] MEDS: hydrOXYzine PAMOATE 25 MG CAPSULE (FP) PO PRN ×2 (10:32→22:23)
[2023-03-14] MEDS: PRENATAL VITAMINS W/ FOLIC ACID TABLET (FP) PO SCH (10:50)
[2023-03-14] MEDS: SERTRALINE HCL 50 MG TABLET (FP) PO SCH (11:40)
[2023-03-14] MEDS: chlordiazePOXIDE HCL 25 MG CAPSULE PO SCH ×3 (11:41→22:24)
[2023-03-14] MEDS: GABAPENTIN 300 MG CAPSULE PO SCH ×2 (11:41→22:23)
[2023-03-14 12:44] LABS: CHLORIDE 107 mmol/L (98-107); POTASSIUM 3.9 mmol/L (3.5-5.1); SODIUM 139 mmol/L (136-145)
[2023-03-14 12:47] LABS: ALBUMIN 3.1 g/dl (3.4-5.0); ANION GAP 3 mmol/L (4-13); CALCIUM 8.3 mg/dL (8.5-10.1); CO2 28 mmol/L (21-32); GLUCOSE,RANDOM 101 mg/dL (74-106)
[2023-03-14 12:50] LABS: CREATININE 0.9 mg/dL (0.55-1.3); SGOT/AST 22 U/L (15-37); SGPT/ALT 32 U/L (13-61)
[2023-03-14 12:52] LABS: BILIRUBIN,TOTAL 0.8 mg/dL (0.2-1); TOT PROT 6.2 g/dl (6.4-8.2)
[2023-03-14 12:53] LABS: ALK PHOS 65 U/L (45-117)
[2023-03-14 13:01] LABS: HEMATOCRIT 40.1 % (35.4-49); HEMOGLOBIN 13.7 GM/dL (11.7-16.9); MCH 31.5 pg (25.7-33.7); MCHC 34.1 g/dl (32.0-35.9); MEAN CELL VOLUME 92.4 fl (80-96); MEAN PLT VOLUME 9.5 fl (7.5-11.1); PLATELET COUNT 256 10^3/uL (134-434); RBC 4.34 M/mm3 (4.00-5.60); RDW 13.3 % (11.9-15.9); WHITE BLOOD COUNT 4.1 K/mm3 (4.0-10.0)
[2023-03-14] MEDS: MELATONIN 5 MG TABLETS PO SCH (22:22)
[2023-03-14] MEDS: THIAMINE HCL 100 MG TABLET (FP) PO SCH (22:23)
[2023-03-15] MEDS: chlordiazePOXIDE HCL 25 MG CAPSULE PO PRN ×3 (03:29→20:05)
[2023-03-15] MEDS: chlordiazePOXIDE HCL 25 MG CAPSULE PO SCH ×4 (05:51→22:29)
[2023-03-15] MEDS: GABAPENTIN 300 MG CAPSULE PO SCH ×2 (10:01→22:29)
[2023-03-15] MEDS: METHOCARBAMOL 500 MG TABLET PO PRN (10:01)
[2023-03-15] MEDS: PRENATAL VITAMINS W/ FOLIC ACID TABLET (FP) PO SCH (10:01)
[2023-03-15] MEDS: SERTRALINE HCL 50 MG TABLET (FP) PO SCH (10:01)
[2023-03-15] MEDS: hydrOXYzine PAMOATE 25 MG CAPSULE (FP) PO PRN (10:01)
[2023-03-15] MEDS ORDERED: ALBUTEROL SO4 HFA INHALER IH PRN (15:48)
[2023-03-15] MEDS: amLODIPine BESYLATE 2.5 MG TABLET (FP) PO SCH (17:25)
[2023-03-15] MEDS: THIAMINE HCL 100 MG TABLET (FP) PO SCH (22:29)
[2023-03-15] MEDS: MAGNESIUM HYDROX 2400MG/30ML ORAL SUSPENSION 30 ML CUP PO PRN (22:30)
[2023-03-15] MEDS: MELATONIN 5 MG TABLETS PO SCH (22:30)
[2023-03-15] MEDS: BUDESONIDE/FORMETEROL FUMARATE 80/4.5 mcg INHALER IH SCH (22:31)
[2023-03-16] MEDS: chlordiazePOXIDE HCL 10 MG CAPSULE PO PRN (02:40)
[2023-03-16] MEDS: hydrOXYzine PAMOATE 25 MG CAPSULE (FP) PO PRN ×2 (02:40→13:27)
[2023-03-16] MEDS: chlordiazePOXIDE HCL 10 MG CAPSULE PO SCH ×4 (06:00→22:00)
[2023-03-16] MEDS: BUDESONIDE/FORMETEROL FUMARATE 80/4.5 mcg INHALER IH SCH ×2 (10:36→22:03)
[2023-03-16] MEDS: GABAPENTIN 300 MG CAPSULE PO SCH ×2 (10:37→22:00)
[2023-03-16] MEDS: SERTRALINE HCL 50 MG TABLET (FP) PO SCH (10:37)
[2023-03-16] MEDS: amLODIPine BESYLATE 2.5 MG TABLET (FP) PO SCH (10:38)
[2023-03-16] MEDS: PRENATAL VITAMINS W/ FOLIC ACID TABLET (FP) PO SCH (10:38)
[2023-03-16] MEDS: MAGNESIUM HYDROX 2400MG/30ML ORAL SUSPENSION 30 ML CUP PO PRN (10:41)
[2023-03-16] MEDS: METHOCARBAMOL 500 MG TABLET PO PRN (13:26)
[2023-03-16] MEDS ORDERED: BACITRACIN 0.9 GM PACKET TP ONE (15:05)
[2023-03-16] MEDS ORDERED: CLOTRIMAZOLE 1% CREAM TP ONE (15:05)
[2023-03-16] MEDS: CLOTRIMAZOLE 1% CREAM TP SCH ×2 (16:22→22:01)
[2023-03-16] MEDS: THIAMINE HCL 100 MG TABLET (FP) PO SCH (22:00)
[2023-03-16] MEDS: MELATONIN 5 MG TABLETS PO SCH (22:01)
[2023-03-16] MEDS: BACITRACIN 0.9 GM PACKET TP SCH (22:37)
[2023-03-17] MEDS: chlordiazePOXIDE HCL 10 MG CAPSULE PO SCH ×2 (05:49→17:02)
[2023-03-17] MEDS: BUDESONIDE/FORMETEROL FUMARATE 80/4.5 mcg INHALER IH SCH ×2 (10:07→22:04)
[2023-03-17] MEDS: GABAPENTIN 300 MG CAPSULE PO SCH ×2 (10:07→22:02)
[2023-03-17] MEDS: BACITRACIN 0.9 GM PACKET TP SCH ×2 (10:07→22:03)
[2023-03-17] MEDS: SERTRALINE HCL 50 MG TABLET (FP) PO SCH (10:07)
[2023-03-17] MEDS: PRENATAL VITAMINS W/ FOLIC ACID TABLET (FP) PO SCH (10:07)
[2023-03-17] MEDS: CLOTRIMAZOLE 1% CREAM TP SCH ×2 (10:09→22:04)
[2023-03-17] MEDS: chlordiazePOXIDE HCL 10 MG CAPSULE PO PRN ×3 (10:09→22:03)
[2023-03-17] MEDS ORDERED: FLU VACCINE (FLULAVAL) PF 60 MCG/0.5 ML SYRINGE 2023-2024 IM ONE (12:00)
[2023-03-17] MEDS: METHOCARBAMOL 500 MG TABLET PO PRN ×2 (14:14→22:05)
[2023-03-17] MEDS: hydrOXYzine PAMOATE 25 MG CAPSULE (FP) PO PRN (14:14)
[2023-03-17] MEDS: MAGNESIUM HYDROX 2400MG/30ML ORAL SUSPENSION 30 ML CUP PO PRN (14:15)
[2023-03-17] MEDS ORDERED: guaiFENesin/D-METHORPHAN HB 10 ML UNIT-DOSE CUPS PO ONE (14:18)
[2023-03-17 14:24] LABS: HIV INTERPRETATION NEGATIVE (NEGATIVE)
[2023-03-17] MEDS ORDERED: guaiFENesin 200 MG/10 ML 10 ML UNIT-DOSE CUPS PO ONE (15:00)
[2023-03-17] MEDS: MELATONIN 5 MG TABLETS PO SCH (22:04)
[2023-03-17] MEDS: THIAMINE HCL 100 MG TABLET (FP) PO SCH (22:04)
[2023-03-18] MEDS ORDERED: chlordiazePOXIDE HCL 10 MG CAPSULE PO ONE (05:00)
[2023-03-18] MEDS: BACITRACIN 0.9 GM PACKET TP SCH ×2 (09:42→21:42)
[2023-03-18] MEDS: SERTRALINE HCL 50 MG TABLET (FP) PO SCH (09:42)
[2023-03-18] MEDS: PRENATAL VITAMINS W/ FOLIC ACID TABLET (FP) PO SCH (09:42)
[2023-03-18] MEDS: GABAPENTIN 300 MG CAPSULE PO SCH ×2 (09:42→21:42)
[2023-03-18] MEDS: CLOTRIMAZOLE 1% CREAM TP SCH ×2 (09:43→21:42)
[2023-03-18] MEDS: BUDESONIDE/FORMETEROL FUMARATE 80/4.5 mcg INHALER IH SCH ×2 (09:54→21:43)
[2023-03-18] MEDS: MAGNESIUM HYDROX 2400MG/30ML ORAL SUSPENSION 30 ML CUP PO PRN ×2 (11:51→17:56)
[2023-03-18] MEDS: METHOCARBAMOL 500 MG TABLET PO PRN ×2 (12:38→21:42)
[2023-03-18] MEDS: hydrOXYzine PAMOATE 25 MG CAPSULE (FP) PO PRN ×2 (12:38→17:18)
[2023-03-18] MEDS: LACTULOSE 20 GM/30 ML UDC (FOR ORAL USE ONLY) PO SCH ×3 (14:27→21:42)
[2023-03-18] MEDS: HYDROCORTISONE ACETATE 25 MG/SUPP.RECT RC PRN (17:53)
[2023-03-18] MEDS: THIAMINE HCL 100 MG TABLET (FP) PO SCH (21:42)
[2023-03-18] MEDS: MELATONIN 5 MG TABLETS PO SCH (21:43)
[2023-03-19] MEDS: hydrOXYzine PAMOATE 25 MG CAPSULE (FP) PO PRN ×3 (07:12→21:21)
[2023-03-19] MEDS: METHOCARBAMOL 500 MG TABLET PO PRN ×2 (07:13→21:22)
[2023-03-19] MEDS: LACTULOSE 20 GM/30 ML UDC (FOR ORAL USE ONLY) PO SCH ×4 (10:25→21:19)
[2023-03-19] MEDS: SERTRALINE HCL 50 MG TABLET (FP) PO SCH (10:25)
[2023-03-19] MEDS: BACITRACIN 0.9 GM PACKET TP SCH ×2 (10:25→21:19)
[2023-03-19] MEDS: BUDESONIDE/FORMETEROL FUMARATE 80/4.5 mcg INHALER IH SCH ×2 (10:25→21:17)
[2023-03-19] MEDS: GABAPENTIN 300 MG CAPSULE PO SCH ×2 (10:26→21:19)
[2023-03-19] MEDS: CLOTRIMAZOLE 1% CREAM TP SCH ×2 (10:26→21:20)
[2023-03-19] MEDS: PRENATAL VITAMINS W/ FOLIC ACID TABLET (FP) PO SCH (10:26)
[2023-03-19] MEDS ORDERED: ALPRAZolam 1 MG TABLET PO ONE (12:45)
[2023-03-19] MEDS ORDERED: clonazePAM 0.5 MG ODT TABLETS SL ONE (13:00)
[2023-03-19] MEDS ORDERED: ALPRAZolam 1 MG TABLET PO SCH (17:00)
[2023-03-19] MEDS: clonazePAM 0.5 MG ODT TABLETS SL SCH (17:18)
[2023-03-19] MEDS: MAGNESIUM HYDROX 2400MG/30ML ORAL SUSPENSION 30 ML CUP PO PRN (18:01)
[2023-03-19] MEDS: THIAMINE HCL 100 MG TABLET (FP) PO SCH (21:19)
[2023-03-19] MEDS: HYDROCORTISONE ACETATE 25 MG/SUPP.RECT RC PRN (21:19)
[2023-03-19] MEDS: MELATONIN 5 MG TABLETS PO SCH (21:20)
[2023-03-20] MEDS: PRENATAL VITAMINS W/ FOLIC ACID TABLET (FP) PO SCH (09:47)
[2023-03-20] MEDS: BUDESONIDE/FORMETEROL FUMARATE 80/4.5 mcg INHALER IH SCH ×2 (09:47→21:12)
[2023-03-20] MEDS: LACTULOSE 20 GM/30 ML UDC (FOR ORAL USE ONLY) PO SCH ×4 (09:48→21:08)
[2023-03-20] MEDS: SERTRALINE HCL 50 MG TABLET (FP) PO SCH (09:48)
[2023-03-20] MEDS: GABAPENTIN 300 MG CAPSULE PO SCH ×2 (09:48→21:09)
[2023-03-20] MEDS: clonazePAM 0.5 MG ODT TABLETS SL SCH ×2 (09:49→16:42)
[2023-03-20] MEDS: BACITRACIN 0.9 GM PACKET TP SCH ×2 (09:49→21:08)
[2023-03-20] MEDS: CLOTRIMAZOLE 1% CREAM TP SCH ×2 (09:51→21:08)
[2023-03-20] MEDS: MAGNESIUM HYDROX 2400MG/30ML ORAL SUSPENSION 30 ML CUP PO PRN (12:42)
[2023-03-20] MEDS: hydrOXYzine PAMOATE 25 MG CAPSULE (FP) PO PRN ×2 (12:42→21:09)
[2023-03-20] MEDS: DOCUSATE SODIUM 100 MG CAPSULE (FP) PO PRN (12:49)
[2023-03-20] MEDS: DEXTROAMPHETAMINE/AMPHETAMINE 10 MG CAP.ER.24H PO SCH (13:39)
[2023-03-20] MEDS: BENZOYL PEROXIDE 5% 60 GM GEL..GRAM. TP SCH ×2 (13:40→21:08)
[2023-03-20] MEDS: OFLOXACIN 0.3% OTIC SOLUTION 5 ML BOTTLE AS SCH ×2 (13:40→23:13)
[2023-03-20] MEDS: IBUPROFEN 600 MG TABLET (FP) PO PRN (17:43)
[2023-03-20] MEDS: HYDROCORTISONE ACETATE 25 MG/SUPP.RECT RC PRN (21:08)
[2023-03-20] MEDS: MELATONIN 5 MG TABLETS PO SCH (21:09)
[2023-03-20] MEDS: THIAMINE HCL 100 MG TABLET (FP) PO SCH (21:09)
[2023-03-21] MEDS: MAGNESIUM HYDROX 2400MG/30ML ORAL SUSPENSION 30 ML CUP PO PRN (04:35)
[2023-03-21] MEDS: DOCUSATE SODIUM 100 MG CAPSULE (FP) PO PRN ×2 (06:22→17:31)
[2023-03-21] MEDS: SERTRALINE HCL 50 MG TABLET (FP) PO SCH (09:55)
[2023-03-21] MEDS: clonazePAM 0.5 MG ODT TABLETS SL SCH ×2 (09:55→16:39)
[2023-03-21] MEDS: GABAPENTIN 300 MG CAPSULE PO SCH ×2 (09:55→21:39)
[2023-03-21] MEDS: BACITRACIN 0.9 GM PACKET TP SCH ×2 (09:55→21:40)
[2023-03-21] MEDS: BUDESONIDE/FORMETEROL FUMARATE 80/4.5 mcg INHALER IH SCH ×2 (09:55→21:40)
[2023-03-21] MEDS: DEXTROAMPHETAMINE/AMPHETAMINE 10 MG CAP.ER.24H PO SCH (09:56)
[2023-03-21] MEDS: BENZOYL PEROXIDE 5% 60 GM GEL..GRAM. TP SCH ×2 (09:56→21:40)
[2023-03-21] MEDS: LACTULOSE 20 GM/30 ML UDC (FOR ORAL USE ONLY) PO SCH ×4 (09:56→21:40)
[2023-03-21] MEDS: OFLOXACIN 0.3% OTIC SOLUTION 5 ML BOTTLE AS SCH ×2 (09:57→21:46)
[2023-03-21] MEDS: PRENATAL VITAMINS W/ FOLIC ACID TABLET (FP) PO SCH (09:57)
[2023-03-21] MEDS: CLOTRIMAZOLE 1% CREAM TP SCH ×2 (09:59→22:06)
[2023-03-21] MEDS: hydrOXYzine PAMOATE 25 MG CAPSULE (FP) PO PRN (17:31)
[2023-03-21] MEDS: MELATONIN 5 MG TABLETS PO SCH (21:40)
[2023-03-21] MEDS: THIAMINE HCL 100 MG TABLET (FP) PO SCH (21:40)
[2023-03-21] MEDS: HYDROCORTISONE ACETATE 25 MG/SUPP.RECT RC PRN (21:41)
[2023-03-21] MEDS: IBUPROFEN 600 MG TABLET (FP) PO PRN (21:42)
[2023-03-22] MEDS: PRENATAL VITAMINS W/ FOLIC ACID TABLET (FP) PO SCH (10:15)
[2023-03-22] MEDS: BACITRACIN 0.9 GM PACKET TP SCH ×2 (10:15→21:46)
[2023-03-22] MEDS: DEXTROAMPHETAMINE/AMPHETAMINE 10 MG CAP.ER.24H PO SCH (10:15)
[2023-03-22] MEDS: LACTULOSE 20 GM/30 ML UDC (FOR ORAL USE ONLY) PO SCH ×4 (10:15→21:47)
[2023-03-22] MEDS: BUDESONIDE/FORMETEROL FUMARATE 80/4.5 mcg INHALER IH SCH ×2 (10:15→21:48)
[2023-03-22] MEDS: GABAPENTIN 300 MG CAPSULE PO SCH ×2 (10:16→21:47)
[2023-03-22] MEDS: clonazePAM 0.5 MG ODT TABLETS SL SCH ×2 (10:16→16:36)
[2023-03-22] MEDS: SERTRALINE HCL 50 MG TABLET (FP) PO SCH (10:16)
[2023-03-22] MEDS: CLOTRIMAZOLE 1% CREAM TP SCH ×2 (10:19→21:47)
[2023-03-22] MEDS: OFLOXACIN 0.3% OTIC SOLUTION 5 ML BOTTLE AS SCH ×2 (10:19→21:47)
[2023-03-22] MEDS: BENZOYL PEROXIDE 5% 60 GM GEL..GRAM. TP SCH ×2 (10:19→21:46)
[2023-03-22] MEDS: MELATONIN 5 MG TABLETS PO SCH (21:47)
[2023-03-22] MEDS: THIAMINE HCL 100 MG TABLET (FP) PO SCH (21:48)
[2023-03-22] MEDS: hydrOXYzine PAMOATE 25 MG CAPSULE (FP) PO PRN (21:48)
[2023-03-22] MEDS: HYDROCORTISONE ACETATE 25 MG/SUPP.RECT RC PRN (21:49)
[2023-03-23] MEDS: PRENATAL VITAMINS W/ FOLIC ACID TABLET (FP) PO SCH (10:03)
[2023-03-23] MEDS: clonazePAM 0.5 MG ODT TABLETS SL SCH ×2 (10:03→16:50)
[2023-03-23] MEDS: DEXTROAMPHETAMINE/AMPHETAMINE 10 MG CAP.ER.24H PO SCH (10:04)
[2023-03-23] MEDS: GABAPENTIN 300 MG CAPSULE PO SCH ×2 (10:04→21:22)
[2023-03-23] MEDS: BUDESONIDE/FORMETEROL FUMARATE 80/4.5 mcg INHALER IH SCH ×2 (10:04→21:22)
[2023-03-23] MEDS: BACITRACIN 0.9 GM PACKET TP SCH ×2 (10:04→21:22)
[2023-03-23] MEDS: SERTRALINE HCL 50 MG TABLET (FP) PO SCH (10:04)
[2023-03-23] MEDS: BENZOYL PEROXIDE 5% 60 GM GEL..GRAM. TP SCH ×2 (10:05→21:23)
[2023-03-23] MEDS: LACTULOSE 20 GM/30 ML UDC (FOR ORAL USE ONLY) PO SCH ×4 (10:05→21:22)
[2023-03-23] MEDS: CLOTRIMAZOLE 1% CREAM TP SCH ×2 (10:05→21:23)
[2023-03-23] MEDS: OFLOXACIN 0.3% OTIC SOLUTION 5 ML BOTTLE AS SCH ×2 (10:05→21:23)
[2023-03-23] MEDS: DOCUSATE SODIUM 100 MG CAPSULE (FP) PO PRN (12:31)
[2023-03-23] MEDS: MAGNESIUM HYDROX 2400MG/30ML ORAL SUSPENSION 30 ML CUP PO PRN (12:31)
[2023-03-23] MEDS: METHOCARBAMOL 500 MG TABLET PO SCH ×2 (13:25→21:22)
[2023-03-23] MEDS: guaiFENesin 600 MG TABLET.ER (FP) PO SCH ×2 (13:25→21:22)
[2023-03-23] MEDS: hydrOXYzine PAMOATE 25 MG CAPSULE (FP) PO PRN (16:51)
[2023-03-23] MEDS: HYDROCORTISONE ACETATE 25 MG/SUPP.RECT RC PRN (21:22)
[2023-03-23] MEDS: THIAMINE HCL 100 MG TABLET (FP) PO SCH (21:22)
[2023-03-23] MEDS: MELATONIN 5 MG TABLETS PO SCH (21:23)
[2023-03-24] MEDS: clonazePAM 0.5 MG ODT TABLETS SL SCH ×2 (06:43→17:41)
[2023-03-24] MEDS: BUDESONIDE/FORMETEROL FUMARATE 80/4.5 mcg INHALER IH SCH ×2 (10:02→23:52)
[2023-03-24] MEDS: GABAPENTIN 300 MG CAPSULE PO SCH ×2 (10:03→23:51)
[2023-03-24] MEDS: guaiFENesin 600 MG TABLET.ER (FP) PO SCH ×2 (10:03→23:51)
[2023-03-24] MEDS: LACTULOSE 20 GM/30 ML UDC (FOR ORAL USE ONLY) PO SCH ×4 (10:03→23:51)
[2023-03-24] MEDS: DEXTROAMPHETAMINE/AMPHETAMINE 10 MG CAP.ER.24H PO SCH (10:03)
[2023-03-24] MEDS: CLOTRIMAZOLE 1% CREAM TP SCH ×2 (10:03→23:51)
[2023-03-24] MEDS: BACITRACIN 0.9 GM PACKET TP SCH ×2 (10:03→23:51)
[2023-03-24] MEDS: SERTRALINE HCL 50 MG TABLET (FP) PO SCH (10:03)
[2023-03-24] MEDS: METHOCARBAMOL 500 MG TABLET PO SCH ×2 (10:03→23:52)
[2023-03-24] MEDS: OFLOXACIN 0.3% OTIC SOLUTION 5 ML BOTTLE AS SCH ×2 (10:05→23:51)
[2023-03-24] MEDS: BENZOYL PEROXIDE 5% 60 GM GEL..GRAM. TP SCH ×2 (10:06→23:51)
[2023-03-24] MEDS: PRENATAL VITAMINS W/ FOLIC ACID TABLET (FP) PO SCH (10:06)
[2023-03-24] MEDS: DOCUSATE SODIUM 100 MG CAPSULE (FP) PO PRN (14:51)
[2023-03-24] MEDS: hydrOXYzine PAMOATE 25 MG CAPSULE (FP) PO PRN (17:40)
[2023-03-24] MEDS: MAGNESIUM HYDROX 2400MG/30ML ORAL SUSPENSION 30 ML CUP PO PRN (17:43)
[2023-03-24] MEDS: MELATONIN 5 MG TABLETS PO SCH (23:51)
[2023-03-24] MEDS: THIAMINE HCL 100 MG TABLET (FP) PO SCH (23:52)
[2023-03-25] MEDS: clonazePAM 0.5 MG ODT TABLETS SL SCH ×2 (06:19→17:04)
[2023-03-25] MEDS: BUDESONIDE/FORMETEROL FUMARATE 80/4.5 mcg INHALER IH SCH ×2 (09:59→22:15)
[2023-03-25] MEDS: LACTULOSE 20 GM/30 ML UDC (FOR ORAL USE ONLY) PO SCH ×4 (09:59→22:16)
[2023-03-25] MEDS: BACITRACIN 0.9 GM PACKET TP SCH ×2 (10:00→22:15)
[2023-03-25] MEDS: METHOCARBAMOL 500 MG TABLET PO SCH ×2 (10:00→22:17)
[2023-03-25] MEDS: GABAPENTIN 300 MG CAPSULE PO SCH ×2 (10:00→22:17)
[2023-03-25] MEDS: guaiFENesin 600 MG TABLET.ER (FP) PO SCH ×2 (10:00→22:17)
[2023-03-25] MEDS: OFLOXACIN 0.3% OTIC SOLUTION 5 ML BOTTLE AS SCH ×2 (10:00→22:15)
[2023-03-25] MEDS: BENZOYL PEROXIDE 5% 60 GM GEL..GRAM. TP SCH ×2 (10:00→22:16)
[2023-03-25] MEDS: SERTRALINE HCL 50 MG TABLET (FP) PO SCH (10:00)
[2023-03-25] MEDS: PRENATAL VITAMINS W/ FOLIC ACID TABLET (FP) PO SCH (10:01)
[2023-03-25] MEDS: CLOTRIMAZOLE 1% CREAM TP SCH ×2 (10:01→22:16)
[2023-03-25] MEDS: DEXTROAMPHETAMINE/AMPHETAMINE 10 MG CAP.ER.24H PO SCH (10:01)
[2023-03-25] MEDS: MAGNESIUM HYDROX 2400MG/30ML ORAL SUSPENSION 30 ML CUP PO PRN (14:40)
[2023-03-25] MEDS: MELATONIN 5 MG TABLETS PO SCH (22:16)
[2023-03-25] MEDS: THIAMINE HCL 100 MG TABLET (FP) PO SCH (22:17)
[2023-03-26] MEDS: clonazePAM 0.5 MG ODT TABLETS SL SCH ×2 (06:45→16:58)
[2023-03-26] MEDS: BACITRACIN 0.9 GM PACKET TP SCH ×2 (10:13→21:00)
[2023-03-26] MEDS: guaiFENesin 600 MG TABLET.ER (FP) PO SCH ×2 (10:13→21:00)
[2023-03-26] MEDS: SERTRALINE HCL 50 MG TABLET (FP) PO SCH (10:13)
[2023-03-26] MEDS: GABAPENTIN 300 MG CAPSULE PO SCH ×2 (10:13→21:00)
[2023-03-26] MEDS: DEXTROAMPHETAMINE/AMPHETAMINE 10 MG CAP.ER.24H PO SCH (10:13)
[2023-03-26] MEDS: BUDESONIDE/FORMETEROL FUMARATE 80/4.5 mcg INHALER IH SCH ×2 (10:14→21:02)
[2023-03-26] MEDS: METHOCARBAMOL 500 MG TABLET PO SCH ×2 (10:14→21:00)
[2023-03-26] MEDS: LACTULOSE 20 GM/30 ML UDC (FOR ORAL USE ONLY) PO SCH ×4 (10:14→21:00)
[2023-03-26] MEDS: BENZOYL PEROXIDE 5% 60 GM GEL..GRAM. TP SCH ×2 (10:14→21:02)
[2023-03-26] MEDS: OFLOXACIN 0.3% OTIC SOLUTION 5 ML BOTTLE AS SCH ×2 (10:14→21:00)
[2023-03-26] MEDS: CLOTRIMAZOLE 1% CREAM TP SCH ×2 (10:14→21:27)
[2023-03-26] MEDS: PRENATAL VITAMINS W/ FOLIC ACID TABLET (FP) PO SCH (10:14)
[2023-03-26] MEDS: hydrOXYzine PAMOATE 25 MG CAPSULE (FP) PO PRN (16:59)
[2023-03-26] MEDS: THIAMINE HCL 100 MG TABLET (FP) PO SCH (21:00)
[2023-03-26] MEDS: MELATONIN 5 MG TABLETS PO SCH (21:00)
[2023-03-27] MEDS: clonazePAM 0.5 MG ODT TABLETS SL SCH ×2 (06:48→17:13)
[2023-03-27 09:02] VITALS: RESP 18
[2023-03-27] MEDS: BUDESONIDE/FORMETEROL FUMARATE 80/4.5 mcg INHALER IH SCH ×2 (10:02→21:35)
[2023-03-27] MEDS: DEXTROAMPHETAMINE/AMPHETAMINE 10 MG CAP.ER.24H PO SCH (10:02)
[2023-03-27] MEDS: SERTRALINE HCL 50 MG TABLET (FP) PO SCH (10:02)
[2023-03-27] MEDS: GABAPENTIN 300 MG CAPSULE PO SCH ×2 (10:02→21:35)
[2023-03-27] MEDS: LACTULOSE 20 GM/30 ML UDC (FOR ORAL USE ONLY) PO SCH ×4 (10:02→21:35)
[2023-03-27] MEDS: guaiFENesin 600 MG TABLET.ER (FP) PO SCH ×2 (10:02→21:34)
[2023-03-27] MEDS: BACITRACIN 0.9 GM PACKET TP SCH ×2 (10:03→21:34)
[2023-03-27] MEDS: METHOCARBAMOL 500 MG TABLET PO SCH ×2 (10:03→21:35)
[2023-03-27] MEDS: PRENATAL VITAMINS W/ FOLIC ACID TABLET (FP) PO SCH (10:03)
[2023-03-27] MEDS: CLOTRIMAZOLE 1% CREAM TP SCH ×2 (10:03→21:35)
[2023-03-27] MEDS: BENZOYL PEROXIDE 5% 60 GM GEL..GRAM. TP SCH ×3 (10:04→21:36)
[2023-03-27] MEDS: OFLOXACIN 0.3% OTIC SOLUTION 5 ML BOTTLE AS SCH ×2 (10:04→21:35)
[2023-03-27] MEDS: MELATONIN 5 MG TABLETS PO SCH (21:35)
[2023-03-27] MEDS: THIAMINE HCL 100 MG TABLET (FP) PO SCH (21:35)
[2023-03-28] MEDS: clonazePAM 0.5 MG ODT TABLETS SL SCH ×2 (06:51→16:50)
[2023-03-28 07:11] VITALS: BP 104/58; PULSE 73; TEMP 97.7
[2023-03-28] MEDS: SERTRALINE HCL 50 MG TABLET (FP) PO SCH (10:11)
[2023-03-28] MEDS: GABAPENTIN 300 MG CAPSULE PO SCH (10:11)
[2023-03-28] MEDS: guaiFENesin 600 MG TABLET.ER (FP) PO SCH (10:11)
[2023-03-28] MEDS: METHOCARBAMOL 500 MG TABLET PO SCH (10:12)
[2023-03-28] MEDS: DEXTROAMPHETAMINE/AMPHETAMINE 10 MG CAP.ER.24H PO SCH (10:13)
[2023-03-28] MEDS: BACITRACIN 0.9 GM PACKET TP SCH (10:13)
[2023-03-28] MEDS: LACTULOSE 20 GM/30 ML UDC (FOR ORAL USE ONLY) PO SCH ×2 (10:13→14:03)
[2023-03-28] MEDS: BUDESONIDE/FORMETEROL FUMARATE 80/4.5 mcg INHALER IH SCH (10:14)
[2023-03-28] MEDS: PRENATAL VITAMINS W/ FOLIC ACID TABLET (FP) PO SCH (10:14)
[2023-03-28] MEDS: BENZOYL PEROXIDE 5% 60 GM GEL..GRAM. TP SCH (10:18)
[2023-03-28] MEDS: CLOTRIMAZOLE 1% CREAM TP SCH (10:18)
== END 2023-03-28 16:54 | disposition home or self-care (01) | DRG 895 ==
LOC: YASAS 18:37 → Y6N 03-14 03:34 → Y5N 03-18 14:39
PROVIDERS: ADMIT Allergy & Immunology; ATTEND Psychiatry & Neurology Pain Medicine
PROC: HZ2ZZZZ Detoxification Services for Substance Abuse Treatment (ICD-10-PCS; 2023-03-14)
PROC: HZ42ZZZ Group Counseling for Substance Abuse Treatment, Cognitive-Behavioral (ICD-10-PCS; principal; 2023-03-18)
DX: F10.20 Alcohol dependence, uncomplicated (principal); U07.1 COVID-19; F14.20 Cocaine dependence, uncomplicated; F19.282 Other psychoactive substance dependence with psychoactive substance-induced sleep disorder; F12.20 Cannabis dependence, uncomplicated; F98.8 Other specified behavioral and emotional disorders with onset usually occurring in childhood and adolescence; I10 Essential (primary) hypertension; J45.20 Mild intermittent asthma, uncomplicated; H60.01 Abscess of right external ear; M62.830 Muscle spasm of back; M54.50 Low back pain, unspecified; G89.29 Other chronic pain; R09.81 Nasal congestion; Z86.79 Personal history of other diseases of the circulatory system; Z86.59 Personal history of other mental and behavioral disorders
CPT/HCPCS: 36415; 80053; 80307; 82140; 85027; 86780; 86803; 87389; 87491; 87591; 87635; 87661; 87811; 90686; 93005; 93010; G0008

== ENCOUNTER 2023-05-07 20:03 | Inpatient (IN) | payer OTHER ==
[2023-05-07 20:35] VITALS: BMI 35.6
[2023-05-07] MEDS ORDERED: guaiFENesin 600 MG TABLET.ER (FP) PO PRN (22:05)
[2023-05-07] MEDS ORDERED: BENZONATATE 200 MG CAPSULE PO PRN (22:05)
[2023-05-07] MEDS ORDERED: NALOXONE HCL 0.4 MG/ML VIAL IM PRN (22:05)
[2023-05-07] MEDS ORDERED: BENZOCAINE/MENTHOL (CHLORASEPTIC ) LOZENGE MM PRN (22:05)
[2023-05-07] MEDS ORDERED: DICYCLOMINE HCL 10 MG CAPSULE PO PRN (22:05)
[2023-05-07] MEDS ORDERED: LOPERAMIDE HCL 2 MG CAPSULE PO PRN (22:05)
[2023-05-07] MEDS ORDERED: ONDANSETRON *ODT* 4 MG TABLET SL PRN (22:05)
[2023-05-07] MEDS ORDERED: NALOXONE HCL (KLOXXADO) 8 MG SPRAY NS PRN (22:05)
[2023-05-07] MEDS ORDERED: BISMUTH SUBSALICYLATE 524 MG/30 ML PO PRN (22:05)
[2023-05-08] MEDS: hydrOXYzine PAMOATE 25 MG CAPSULE (FP) PO PRN (04:16)
[2023-05-08] MEDS: chlordiazePOXIDE HCL 25 MG CAPSULE PO SCH (10:28)
[2023-05-08] MEDS: PRENATAL VITAMINS W/ FOLIC ACID TABLET (FP) PO SCH (10:28)
[2023-05-08] MEDS: BUDESONIDE/FORMETEROL FUMARATE 80/4.5 mcg INHALER IH SCH (10:30)
[2023-05-08] MEDS: ACETAMINOPHEN 325 MG TABLET (FP) PO PRN (10:31)
[2023-05-08] MEDS: MAGNESIUM HYDROX 2400MG/30ML ORAL SUSPENSION 30 ML CUP PO PRN (17:25)
[2023-05-08] MEDS: MELATONIN 5 MG TABLETS PO SCH (22:29)
[2023-05-08] MEDS: GABAPENTIN 100 MG CAPSULE PO SCH (22:29)
[2023-05-08] MEDS: THIAMINE HCL 100 MG TABLET (FP) PO SCH (22:29)
[2023-05-09] MEDS: chlordiazePOXIDE HCL 25 MG CAPSULE PO SCH (05:47)
[2023-05-09] MEDS ORDERED: BREXPIPRAZOLE 1 MG PO SCH (10:00)
[2023-05-09] MEDS: SERTRALINE HCL 50 MG TABLET (FP) PO SCH (10:15)
[2023-05-09] MEDS: chlordiazePOXIDE HCL 25 MG CAPSULE PO PRN (13:43)
[2023-05-10] MEDS: chlordiazePOXIDE HCL 10 MG CAPSULE PO PRN (03:44)
[2023-05-10] MEDS: chlordiazePOXIDE HCL 10 MG CAPSULE PO SCH (05:27)
[2023-05-11] MEDS: chlordiazePOXIDE HCL 10 MG CAPSULE PO SCH (05:39)
[2023-05-11] MEDS: DEXTROAMPHETAMINE/AMPHETAMINE 10 MG CAP.ER.24H PO SCH (10:12)
[2023-05-11] MEDS: TOLNAFTATE 1% CREAM 15 GM TUBE TP SCH (10:15)
[2023-05-11] MEDS: IBUPROFEN 600 MG TABLET (FP) PO PRN (13:17)
[2023-05-11] MEDS: BENZOYL PEROXIDE 5% 60 GM GEL..GRAM. TP SCH (13:17)
[2023-05-11 16:18] LABS: HEMATOCRIT 42.6 % (35.4-49); HEMOGLOBIN 14.7 GM/dL (11.7-16.9); MCH 31.6 pg (25.7-33.7); MCHC 34.5 g/dl (32.0-35.9); MEAN CELL VOLUME 91.5 fl (80-96); MEAN PLT VOLUME 9.4 fl (7.5-11.1); PLATELET COUNT 226 10^3/uL (134-434); RBC 4.65 M/mm3 (4.00-5.60); RDW 14.5 % (11.9-15.9); WHITE BLOOD COUNT 6.6 K/mm3 (4.0-10.0)
[2023-05-11 16:21] LABS: POTASSIUM 4.5 mmol/L (3.5-5.1)
[2023-05-11 16:23] LABS: ALBUMIN 3.8 g/dl (3.4-5.0)
[2023-05-11 16:24] LABS: BLOOD UREA NITROGEN 13.6 mg/dL (7-18)
[2023-05-11 16:28] LABS: BILIRUBIN,TOTAL 0.3 mg/dL (0.2-1); TOT PROT 7.5 g/dl (6.4-8.2)
[2023-05-11] MEDS: POLYETHYLENE GLYCOL (HEALTHYLAX) 3350 17 GM PACKET PO PRN (17:31)
[2023-05-11] MEDS: GABAPENTIN 300 MG CAPSULE PO SCH (21:36)
[2023-05-11] MEDS: HYDROCORTISONE 0.5% TOPICAL CREAM 30 GM TUBE TP SCH (21:37)
[2023-05-12] MEDS: chlordiazePOXIDE HCL 10 MG CAPSULE PO ONE (05:37)
[2023-05-12] MEDS: SERTRALINE HCL 50 MG TABLET (FP) PO SCH (10:21)
[2023-05-12] MEDS: guaiFENesin 600 MG TABLET.ER (FP) PO PRN (15:48)
[2023-05-12] MEDS: METHOCARBAMOL 500 MG TABLET PO PRN (15:48)
[2023-05-12] MEDS: ALBUTEROL SO4 HFA INHALER IH PRN (16:36)
[2023-05-12] MEDS: AMOX TR/POT CLAV 500MG/125MG TABLETS (FP) PO SCH (16:39)
[2023-05-13] MEDS ORDERED: ALPRAZolam 1 MG TABLET PO SCH (10:00)
[2023-05-13] MEDS: clonazePAM 0.5 MG ODT TABLETS SL SCH (14:25)
[2023-05-13] MEDS: LACTULOSE 20 GM/30 ML UDC (FOR ORAL USE ONLY) PO SCH (21:16)
[2023-05-14] MEDS: clonazePAM 0.5 MG ODT TABLETS SL SCH (09:56)
[2023-05-17] MEDS: IBUPROFEN 400 MG TABLET (FP) PO PRN (16:41)
[2023-05-19 13:00] LABS: POTASSIUM 4.9 mmol/L (3.5-5.1)
[2023-05-19 13:03] LABS: ALBUMIN 3.6 g/dl (3.4-5.0); CALCIUM 9.2 mg/dL (8.5-10.1)
[2023-05-19 13:07] LABS: TOT PROT 7.2 g/dl (6.4-8.2)
[2023-05-19 13:14] LABS: BILIRUBIN,TOTAL 0.2 mg/dL (0.2-1)
[2023-05-19] MEDS: MAG HYDROX/AL HYDROX/SIMETH 30 ML UNIT-DOSE CUP PO PRN (16:18)
[2023-05-19] MEDS: METHOCARBAMOL 500 MG TABLET PO PRN (16:39)
[2023-05-20 07:15] VITALS: RESP 18
[2023-05-20] MEDS: NALTREXONE HCL 50 MG TABLET PO SCH (09:36)
[2023-05-20 11:51] LABS: HIV INTERPRETATION NEGATIVE (NEGATIVE)
[2023-05-21 06:33] VITALS: BP 132/78; PULSE 84; TEMP 97.5
[2023-05-21] MEDS: clonazePAM 0.5 MG ODT TABLETS SL SCH (10:25)
[2023-05-21 15:17] LABS: POTASSIUM 4.2 mmol/L (3.5-5.1)
[2023-05-21 15:23] LABS: ALBUMIN 3.8 g/dl (3.4-5.0); BLOOD UREA NITROGEN 13.7 mg/dL (7-18); CALCIUM 8.9 mg/dL (8.5-10.1)
[2023-05-21 15:26] LABS: CREATININE 0.9 mg/dL (0.55-1.3)
[2023-05-21 15:28] LABS: BILIRUBIN,TOTAL 0.4 mg/dL (0.2-1); TOT PROT 6.8 g/dl (6.4-8.2)
== END 2023-05-21 13:58 | disposition left against medical advice (07) | DRG 894 ==
LOC: YASAS 20:03 → Y3N 05-08 03:56 → Y3W 05-12 12:50
PROVIDERS: ADMIT Allergy & Immunology; ATTEND Psychiatry & Neurology Pain Medicine
PROC: HZ42ZZZ Group Counseling for Substance Abuse Treatment, Cognitive-Behavioral (ICD-10-PCS; principal; 2023-05-08)
DX: F10.20 Alcohol dependence, uncomplicated (principal); F14.20 Cocaine dependence, uncomplicated; F13.20 Sedative, hypnotic or anxiolytic dependence, uncomplicated; E72.20 Disorder of urea cycle metabolism, unspecified; F17.210 Nicotine dependence, cigarettes, uncomplicated; F31.9 Bipolar disorder, unspecified; F41.9 Anxiety disorder, unspecified; F43.10 Post-traumatic stress disorder, unspecified; I10 Essential (primary) hypertension; J45.20 Mild intermittent asthma, uncomplicated; M54.50 Low back pain, unspecified; G89.29 Other chronic pain; B35.3 Tinea pedis; F91.8 Other conduct disorders; Z91.199 Patient's noncompliance with other medical treatment and regimen due to unspecified reason; Z86.59 Personal history of other mental and behavioral disorders; Z86.79 Personal history of other diseases of the circulatory system
CPT/HCPCS: 36415; 80053; 82140; 82652; 83735; 85027; 86695; 86696; 86780; 86803; 87389; 87491; 87591; 87635; 87661

== ENCOUNTER 2023-06-10 18:26 | Inpatient (IN) | payer OTHER ==
[2023-06-10] MEDS ORDERED: BENZONATATE 200 MG CAPSULE PO PRN (20:22)
[2023-06-10] MEDS ORDERED: LOPERAMIDE HCL 2 MG CAPSULE PO PRN (20:22)
[2023-06-10] MEDS ORDERED: BISMUTH SUBSALICYLATE 524 MG/30 ML PO PRN (20:22)
[2023-06-10] MEDS ORDERED: BENZOCAINE/MENTHOL (CHLORASEPTIC ) LOZENGE MM PRN (20:22)
[2023-06-10] MEDS ORDERED: MAG HYDROX/AL HYDROX/SIMETH 30 ML UNIT-DOSE CUP PO PRN (20:22)
[2023-06-10] MEDS ORDERED: ACETAMINOPHEN 325 MG TABLET (FP) PO PRN (20:22)
[2023-06-10] MEDS ORDERED: NALOXONE HCL 0.4 MG/ML VIAL IM PRN (20:22)
[2023-06-10] MEDS ORDERED: ONDANSETRON *ODT* 4 MG TABLET SL PRN (20:22)
[2023-06-10] MEDS ORDERED: POLYETHYLENE GLYCOL (HEALTHYLAX) 3350 17 GM PACKET PO PRN (20:22)
[2023-06-10] MEDS ORDERED: NALOXONE HCL (KLOXXADO) 8 MG SPRAY NS PRN (20:22)
[2023-06-10] MEDS ORDERED: DICYCLOMINE HCL 10 MG CAPSULE PO PRN (20:22)
[2023-06-10] MEDS ORDERED: IBUPROFEN 400 MG TABLET (FP) PO PRN (20:22)
[2023-06-10 20:28] VITALS: BMI 36.3
[2023-06-10] MEDS ORDERED: METHOCARBAMOL 500 MG TABLET ONE (22:33)
[2023-06-10] MEDS ORDERED: MELATONIN 5 MG TABLETS ONE (22:33)
[2023-06-10] MEDS: MELATONIN 5 MG TABLETS PO SCH (22:38)
[2023-06-10] MEDS: THIAMINE HCL 100 MG TABLET (FP) PO SCH (22:38)
[2023-06-11] MEDS: PRENATAL VITAMINS W/ FOLIC ACID TABLET (FP) PO SCH (10:28)
[2023-06-11] MEDS: BUDESONIDE/FORMETEROL FUMARATE 80/4.5 mcg INHALER IH SCH (10:29)
[2023-06-11] MEDS: chlordiazePOXIDE HCL 25 MG CAPSULE PO SCH (10:55)
[2023-06-11] MEDS: DEXTROAMPHETAMINE/AMPHETAMINE 10 MG CAP.ER.24H PO SCH (11:22)
[2023-06-11] MEDS: chlordiazePOXIDE HCL 25 MG CAPSULE PO PRN (15:02)
[2023-06-12] MEDS: METHOCARBAMOL 500 MG TABLET PO PRN (10:46)
[2023-06-12] MEDS: hydrOXYzine PAMOATE 25 MG CAPSULE (FP) PO PRN (10:46)
[2023-06-12] MEDS: SERTRALINE HCL 50 MG TABLET (FP) PO SCH (10:59)
[2023-06-12] MEDS ORDERED: DEXTROAMPHETAMINE/AMPHETAMINE 10 MG CAP.ER.24H PO SCH (11:00)
[2023-06-12 12:29] LABS: HEMATOCRIT 39.1 % (35.4-49); HEMOGLOBIN 13.6 GM/dL (11.7-16.9); MCHC 34.9 g/dl (32.0-35.9); MEAN CELL VOLUME 91.6 fl (80-96); MEAN PLT VOLUME 9.1 fl (7.5-11.1); PLATELET COUNT 217 10^3/uL (134-434); RBC 4.27 M/mm3 (4.00-5.60); RDW 14.6 % (11.9-15.9)
[2023-06-12 12:45] LABS: POTASSIUM 3.3 mmol/L (3.5-5.1)
[2023-06-12 12:46] LABS: CALCIUM 8.7 mg/dL (8.5-10.1)
[2023-06-12 12:49] LABS: CREATININE 0.8 mg/dL (0.55-1.3)
[2023-06-12 12:51] LABS: BILIRUBIN,TOTAL 0.3 mg/dL (0.2-1); TOT PROT 5.8 g/dl (6.4-8.2)
[2023-06-12] MEDS: MAGNESIUM HYDROX 2400MG/30ML ORAL SUSPENSION 30 ML CUP PO PRN (14:58)
[2023-06-12] MEDS: guaiFENesin 600 MG TABLET.ER (FP) PO PRN (14:58)
[2023-06-12] MEDS: POTASSIUM CHLORIDE ORAL LIQUID 20 MEQ/15 ML PO ONE (15:25)
[2023-06-12] MEDS: LACTULOSE 20 GM/30 ML UDC (FOR ORAL USE ONLY) PO ONE (15:25)
[2023-06-12] MEDS: LACTULOSE 20 GM/30 ML UDC (FOR ORAL USE ONLY) PO SCH (17:23)
[2023-06-12] MEDS: POTASSIUM CHLORIDE ORAL LIQUID 20 MEQ/15 ML PO SCH (22:11)
[2023-06-12] MEDS: GABAPENTIN 300 MG CAPSULE PO SCH (22:11)
[2023-06-12] MEDS: ALBUTEROL SO4 HFA INHALER IH PRN (22:12)
[2023-06-13] MEDS: chlordiazePOXIDE HCL 25 MG CAPSULE PO SCH (06:24)
[2023-06-13] MEDS: SUVOREXANT 10 MG TABLET PO PRN (22:35)
[2023-06-14] MEDS: chlordiazePOXIDE HCL 10 MG CAPSULE PO SCH (06:16)
[2023-06-14] MEDS: PSYLLIUM 5.85 GM PACKET PO SCH (13:58)
[2023-06-14] MEDS: chlordiazePOXIDE HCL 10 MG CAPSULE PO PRN (14:01)
[2023-06-14] MEDS: BENZOYL PEROXIDE 5% 60 GM GEL..GRAM. TP SCH (15:38)
[2023-06-14] MEDS: guaiFENesin 600 MG TABLET.ER (FP) PO SCH (19:02)
[2023-06-14] MEDS ORDERED: guaiFENesin 600 MG TABLET.ER (FP) PO SCH (22:00)
[2023-06-14] MEDS: CLOTRIMAZOLE 1% CREAM TP SCH (22:17)
[2023-06-14] MEDS: IBUPROFEN 600 MG TABLET (FP) PO PRN (22:23)
[2023-06-15] MEDS: chlordiazePOXIDE HCL 10 MG CAPSULE PO SCH (05:01)
[2023-06-15 10:40] LABS: CHOLESTEROL 169 mg/dL (50-200)
[2023-06-15 10:41] LABS: LDL CHOLESTEROL (ONLY SJRH) 87 mg/dL (5-100)
[2023-06-15 10:44] LABS: HDL CHOLESTEROL 49 mg/dL (40-60)
[2023-06-15 11:11] LABS: HIV INTERPRETATION NEGATIVE (NEGATIVE)
[2023-06-16] MEDS: chlordiazePOXIDE HCL 10 MG CAPSULE PO ONE (05:21)
[2023-06-16 12:50] VITALS: BP 134/72; PULSE 95; RESP 16; TEMP 97.3
== END 2023-06-16 13:25 | disposition home or self-care (01) | DRG 897 ==
LOC: YASAS 18:26 → Y6N 22:15
PROVIDERS: ADMIT Allergy & Immunology; ATTEND Surgery
PROC: HZ2ZZZZ Detoxification Services for Substance Abuse Treatment (ICD-10-PCS; principal; 2023-06-10)
DX: F10.230 Alcohol dependence with withdrawal, uncomplicated (principal); F14.20 Cocaine dependence, uncomplicated; F19.282 Other psychoactive substance dependence with psychoactive substance-induced sleep disorder; F19.280 Other psychoactive substance dependence with psychoactive substance-induced anxiety disorder; F19.24 Other psychoactive substance dependence with psychoactive substance-induced mood disorder; F31.9 Bipolar disorder, unspecified; F25.9 Schizoaffective disorder, unspecified; F41.9 Anxiety disorder, unspecified; F43.10 Post-traumatic stress disorder, unspecified; E87.6 Hypokalemia; I10 Essential (primary) hypertension; J45.20 Mild intermittent asthma, uncomplicated; B35.3 Tinea pedis; M54.50 Low back pain, unspecified; G89.29 Other chronic pain; R79.89 Other specified abnormal findings of blood chemistry
CPT/HCPCS: 36415; 80053; 80061; 80305; 82140; 82947; 83036; 84132; 85027; 86780; 87389; 87491; 87591; 87635; 87661; 87811; 93005; 93010

== ENCOUNTER 2023-08-05 12:24 | Inpatient (IN) | payer OTHER ==
[2023-08-05 13:16] VITALS: BMI 35.6
[2023-08-05] MEDS ORDERED: DICYCLOMINE HCL 10 MG CAPSULE PO PRN (15:02)
[2023-08-05] MEDS ORDERED: POLYETHYLENE GLYCOL (HEALTHYLAX) 3350 17 GM PACKET PO PRN (15:02)
[2023-08-05] MEDS ORDERED: LOPERAMIDE HCL 2 MG CAPSULE PO PRN (15:02)
[2023-08-05] MEDS ORDERED: ACETAMINOPHEN 325 MG TABLET (FP) PO PRN (15:02)
[2023-08-05] MEDS ORDERED: guaiFENesin 600 MG TABLET.ER (FP) PO PRN (15:02)
[2023-08-05] MEDS ORDERED: BENZONATATE 200 MG CAPSULE PO PRN (15:02)
[2023-08-05] MEDS ORDERED: BISMUTH SUBSALICYLATE 524 MG/30 ML PO PRN (15:02)
[2023-08-05] MEDS ORDERED: ONDANSETRON *ODT* 4 MG TABLET SL PRN (15:02)
[2023-08-05] MEDS ORDERED: BENZOCAINE/MENTHOL (CHLORASEPTIC ) LOZENGE MM PRN (15:02)
[2023-08-05] MEDS ORDERED: ALBUTEROL SO4 HFA INHALER IH PRN (15:05)
[2023-08-05] MEDS: cloNIDine HCL 0.1 MG TABLET PO ONE (15:46)
[2023-08-05] MEDS ORDERED: cloNIDine HCL 0.1 MG TABLET ONE (15:48)
[2023-08-05] MEDS: hydrOXYzine PAMOATE 25 MG CAPSULE (FP) PO PRN (17:43)
[2023-08-05] MEDS: IBUPROFEN 600 MG TABLET (FP) PO PRN (17:43)
[2023-08-05] MEDS: BUDESONIDE/FORMETEROL FUMARATE 80/4.5 mcg INHALER IH SCH (22:49)
[2023-08-05] MEDS: MELATONIN 5 MG TABLETS PO SCH (22:49)
[2023-08-05] MEDS: THIAMINE 100 MG TABLET PO SCH (22:49)
[2023-08-06] MEDS: METHOCARBAMOL 500 MG TABLET PO PRN (05:24)
[2023-08-06] MEDS: NALTREXONE HCL 50 MG TABLET PO SCH (10:46)
[2023-08-06] MEDS: PRENATAL VITAMINS W/ FOLIC ACID TABLET (FP) PO SCH (10:46)
[2023-08-06] MEDS: chlordiazePOXIDE HCL 25 MG CAPSULE PO SCH (10:48)
[2023-08-06] MEDS ORDERED: diazePAM 5 MG TABLET PO SCH (11:00)
[2023-08-06 11:37] LABS: HEMATOCRIT 41.8 % (35.4-49); HEMOGLOBIN 14.4 GM/dL (11.7-16.9); MCH 32.2 pg (25.7-33.7); MCHC 34.5 g/dl (32.0-35.9); MEAN CELL VOLUME 93.3 fl (80-96); MEAN PLT VOLUME 9.1 fl (7.5-11.1); PLATELET COUNT 244 10^3/uL (134-434); RBC 4.48 M/mm3 (4.00-5.60); WHITE BLOOD COUNT 4.2 K/mm3 (4.0-10.0)
[2023-08-06 11:44] LABS: CHLORIDE 110 mmol/L (98-107); POTASSIUM 4.1 mmol/L (3.5-5.1); SODIUM 141 mmol/L (136-145)
[2023-08-06 11:47] LABS: ANION GAP 1 mmol/L (4-13); BLOOD UREA NITROGEN 18.2 mg/dL (7-18); CALCIUM 8.6 mg/dL (8.5-10.1); CO2 30 mmol/L (21-32); GLUCOSE,RANDOM 120 mg/dL (74-106)
[2023-08-06 11:50] LABS: CREATININE 0.9 mg/dL (0.55-1.3); SGOT/AST 20 U/L (15-37); SGPT/ALT 29 U/L (13-61)
[2023-08-06 11:53] LABS: BILIRUBIN,TOTAL 0.5 mg/dL (0.2-1); TOT PROT 5.8 g/dl (6.4-8.2)
[2023-08-06 11:54] LABS: ALK PHOS 69 U/L (45-117)
[2023-08-06] MEDS: GABAPENTIN 300 MG CAPSULE PO SCH (22:21)
[2023-08-07] MEDS: chlordiazePOXIDE HCL 10 MG CAPSULE PO SCH (05:29)
[2023-08-07] MEDS: MAG HYDROX/AL HYDROX/SIMETH 30 ML UNIT-DOSE CUP PO PRN (05:35)
[2023-08-07] MEDS: IBUPROFEN 400 MG TABLET (FP) PO PRN (05:35)
[2023-08-07] MEDS ORDERED: diazePAM 5 MG TABLET PO SCH (06:00)
[2023-08-07] MEDS: DEXTROAMPHETAMINE/AMPHETAMINE 10 MG CAP.ER.24H PO SCH (10:08)
[2023-08-07] MEDS: SERTRALINE HCL 50 MG TABLET (FP) PO SCH (10:09)
[2023-08-07] MEDS: chlordiazePOXIDE HCL 25 MG CAPSULE PO PRN (13:58)
[2023-08-07] MEDS: MAGNESIUM HYDROX 2400MG/30ML ORAL SUSPENSION 30 ML CUP PO PRN (14:23)
[2023-08-08] MEDS: chlordiazePOXIDE HCL 10 MG CAPSULE PO SCH (05:39)
[2023-08-08] MEDS ORDERED: diazePAM 5 MG TABLET PO SCH (06:00)
[2023-08-08] MEDS: chlordiazePOXIDE HCL 10 MG CAPSULE PO PRN (11:36)
[2023-08-08 15:57] LABS: HIV INTERPRETATION NEGATIVE (NEGATIVE)
[2023-08-09] MEDS: chlordiazePOXIDE HCL 10 MG CAPSULE PO ONE (05:30)
[2023-08-09] MEDS ORDERED: diazePAM 5 MG TABLET PO ONE (06:00)
[2023-08-09] MEDS: amLODIPine BESYLATE 5 MG TABLET (FP) PO SCH (13:47)
[2023-08-10 06:35] VITALS: TEMP 97.3
[2023-08-10 08:53] VITALS: RESP 18
[2023-08-10 13:03] VITALS: BP 134/72; PULSE 78
[2023-08-10] MEDS ORDERED: LACTULOSE 20 GM/30 ML UDC (FOR ORAL USE ONLY) PO SCH (14:00)
== END 2023-08-10 13:07 | disposition home or self-care (01) | DRG 897 ==
LOC: YASAS 12:24 → Y6N 14:28
PROVIDERS: ADMIT Allergy & Immunology; ATTEND Surgery
PROC: HZ2ZZZZ Detoxification Services for Substance Abuse Treatment (ICD-10-PCS; principal; 2023-08-05)
DX: F10.230 Alcohol dependence with withdrawal, uncomplicated (principal); F14.20 Cocaine dependence, uncomplicated; E72.20 Disorder of urea cycle metabolism, unspecified; F12.20 Cannabis dependence, uncomplicated; F19.982 Other psychoactive substance use, unspecified with psychoactive substance-induced sleep disorder; F19.980 Other psychoactive substance use, unspecified with psychoactive substance-induced anxiety disorder; F19.94 Other psychoactive substance use, unspecified with psychoactive substance-induced mood disorder; F90.8 Attention-deficit hyperactivity disorder, other type; F43.10 Post-traumatic stress disorder, unspecified; I10 Essential (primary) hypertension; E78.5 Hyperlipidemia, unspecified; J45.20 Mild intermittent asthma, uncomplicated; M54.59 Other low back pain; G89.29 Other chronic pain; Z56.0 Unemployment, unspecified
CPT/HCPCS: 36415; 80053; 80305; 80307; 82140; 85027; 86780; 86803; 87389; 87491; 87591; 87661; 93005; 93010

== ENCOUNTER 2023-09-09 15:22 | Inpatient (IN) | payer OTHER ==
[2023-09-09 17:01] VITALS: BMI 35.2
[2023-09-09] MEDS ORDERED: DICYCLOMINE HCL 10 MG CAPSULE PO PRN (19:34)
[2023-09-09] MEDS ORDERED: POLYETHYLENE GLYCOL (HEALTHYLAX) 3350 17 GM PACKET PO PRN (19:34)
[2023-09-09] MEDS ORDERED: NALOXONE (NARCAN) HCL 4 MG/0.1 ML SPRAY NS PRN (19:34)
[2023-09-09] MEDS ORDERED: ONDANSETRON *ODT* 4 MG TABLET SL PRN (19:34)
[2023-09-09] MEDS ORDERED: IBUPROFEN 400 MG TABLET (FP) PO PRN (19:34)
[2023-09-09] MEDS ORDERED: BENZONATATE 200 MG CAPSULE PO PRN (19:34)
[2023-09-09] MEDS ORDERED: BISMUTH SUBSALICYLATE 524 MG/30 ML PO PRN (19:34)
[2023-09-09] MEDS ORDERED: MAG HYDROX/AL HYDROX/SIMETH 30 ML UNIT-DOSE CUP PO PRN (19:34)
[2023-09-09] MEDS ORDERED: BENZOCAINE/MENTHOL (CHLORASEPTIC ) LOZENGE MM PRN (19:34)
[2023-09-09] MEDS ORDERED: LOPERAMIDE HCL 2 MG CAPSULE PO PRN (19:34)
[2023-09-09] MEDS ORDERED: NALOXONE HCL 0.4 MG/ML VIAL IM PRN (19:34)
[2023-09-09] MEDS ORDERED: IBUPROFEN 600 MG TABLET (FP) PO PRN (19:34)
[2023-09-09] MEDS: chlordiazePOXIDE HCL 25 MG CAPSULE PO PRN (20:51)
[2023-09-09] MEDS: ACETAMINOPHEN 325 MG TABLET (FP) PO PRN (20:51)
[2023-09-09] MEDS ORDERED: ALBUTEROL SO4 HFA INHALER IH PRN (21:15)
[2023-09-09] MEDS: chlordiazePOXIDE HCL 25 MG CAPSULE PO SCH (22:28)
[2023-09-09] MEDS: MELATONIN 5 MG TABLETS PO SCH (22:28)
[2023-09-09] MEDS: THIAMINE 100 MG TABLET PO SCH (22:28)
[2023-09-09] MEDS: BUDESONIDE/FORMETEROL FUMARATE 80/4.5 mcg INHALER IH SCH (22:30)
[2023-09-10] MEDS: PRENATAL VITAMINS W/ FOLIC ACID TABLET (FP) PO SCH (10:17)
[2023-09-10 11:42] LABS: EOS % 4.5 % (0-4.5); HEMATOCRIT 42.2 % (35.4-49); HEMOGLOBIN 14.1 GM/dL (11.7-16.9); LYMPH % 40.1 % (8-40); MCH 31.2 pg (25.7-33.7); MCHC 33.4 g/dl (32.0-35.9); MEAN CELL VOLUME 93.6 fl (80-96); MEAN PLT VOLUME 9.2 fl (7.5-11.1); MONO % 11.1 % (3.8-10.2); NEUT % 43.9 % (42.8-82.8); PLATELET COUNT 244 10^3/uL (134-434); RDW 14.1 % (11.9-15.9); WHITE BLOOD COUNT 3.9 K/mm3 (4.0-10.0)
[2023-09-10 11:43] LABS: BASO % 0.4 % (0-2.0)
[2023-09-10 12:02] LABS: POTASSIUM 3.9 mmol/L (3.5-5.1)
[2023-09-10 12:13] LABS: BLOOD UREA NITROGEN 9.9 mg/dL (7-18); CALCIUM 8.5 mg/dL (8.5-10.1)
[2023-09-10 12:14] LABS: CREATININE 0.8 mg/dL (0.55-1.3)
[2023-09-10 12:55] LABS: HIV INTERPRETATION NEGATIVE (NEGATIVE)
[2023-09-10] MEDS: amLODIPine BESYLATE 5 MG TABLET (FP) PO SCH (13:49)
[2023-09-11] MEDS: chlordiazePOXIDE HCL 25 MG CAPSULE PO SCH (05:49)
[2023-09-11] MEDS: MAGNESIUM HYDROX 2400MG/30ML ORAL SUSPENSION 30 ML CUP PO PRN (10:12)
[2023-09-11] MEDS: guaiFENesin 600 MG TABLET.ER (FP) PO PRN (10:13)
[2023-09-11] MEDS: METHOCARBAMOL 500 MG TABLET PO PRN (10:13)
[2023-09-11] MEDS: TOLNAFTATE 1% CREAM 15 GM TUBE TP SCH (13:11)
[2023-09-11] MEDS: HYDROCORTISONE 1% TOPICAL CREAM 30 GM TUBE TP SCH (13:12)
[2023-09-11] MEDS: GABAPENTIN 300 MG CAPSULE PO SCH (22:01)
[2023-09-12] MEDS: chlordiazePOXIDE HCL 10 MG CAPSULE PO SCH (05:32)
[2023-09-12] MEDS: SERTRALINE HCL 50 MG TABLET (FP) PO SCH (10:19)
[2023-09-12] MEDS: DEXTROAMPHETAMINE/AMPHETAMINE 10 MG CAP.ER.24H PO SCH (10:19)
[2023-09-12] MEDS: BREXPIPRAZOLE 1 MG PO SCH (11:26)
[2023-09-12] MEDS: DEXTROAMPHETAMINE/AMPHETAMINE 10 MG CAP.ER.24H PO ONE (11:31)
[2023-09-12] MEDS: SERTRALINE HCL 50 MG TABLET (FP) PO ONE (11:31)
[2023-09-12] MEDS: BREXPIPRAZOLE (REXULTI) 1 MG TABLET (RESTRICTED TO PSYCIATRY) PO SCH (12:52)
[2023-09-12] MEDS: hydrOXYzine PAMOATE 25 MG CAPSULE (FP) PO PRN (13:07)
[2023-09-12] MEDS: chlordiazePOXIDE HCL 10 MG CAPSULE PO PRN (13:07)
[2023-09-12] MEDS: LACTULOSE 20 GM/30 ML UDC (FOR ORAL USE ONLY) PO SCH (14:00)
[2023-09-12 14:07] LABS: POTASSIUM 5.4 mmol/L (3.5-5.1)
[2023-09-12 14:09] LABS: BLOOD UREA NITROGEN 15.2 mg/dL (7-18); CALCIUM 8.8 mg/dL (8.5-10.1)
[2023-09-12 14:10] LABS: ALBUMIN 3.1 g/dl (3.4-5.0)
[2023-09-12 14:14] LABS: BILIRUBIN,TOTAL 0.4 mg/dL (0.2-1); TOT PROT 5.8 g/dl (6.4-8.2)
[2023-09-12] MEDS: guaiFENesin 600 MG TABLET.ER (FP) PO ONE (18:27)
[2023-09-12] MEDS ORDERED: guaiFENesin 600 MG TABLET.ER (FP) PO SCH (22:00)
[2023-09-13] MEDS: chlordiazePOXIDE HCL 10 MG CAPSULE PO SCH (05:42)
[2023-09-13] MEDS: SERTRALINE HCL 50 MG TABLET (FP) PO SCH (09:07)
[2023-09-13] MEDS: guaiFENesin 600 MG TABLET.ER (FP) PO SCH (09:08)
[2023-09-13] MEDS: DEXTROAMPHETAMINE/AMPHETAMINE 10 MG CAP.ER.24H PO SCH (09:08)
[2023-09-13 12:09] LABS: POTASSIUM 4.6 mmol/L (3.5-5.1)
[2023-09-13 12:15] LABS: BLOOD UREA NITROGEN 9.7 mg/dL (7-18); CALCIUM 8.7 mg/dL (8.5-10.1)
[2023-09-13 12:18] LABS: CREATININE 0.9 mg/dL (0.55-1.3)
[2023-09-14] MEDS: chlordiazePOXIDE HCL 10 MG CAPSULE PO ONE (05:38)
[2023-09-14 09:42] VITALS: RESP 20
[2023-09-14 13:08] VITALS: BP 154/86; PULSE 90; TEMP 97.8
== END 2023-09-14 13:25 | disposition other institution (70) | DRG 897 ==
LOC: YASAS 15:22 → Y3N 20:15
PROVIDERS: ADMIT Allergy & Immunology; ATTEND Psychiatry & Neurology Pain Medicine
PROC: HZ2ZZZZ Detoxification Services for Substance Abuse Treatment (ICD-10-PCS; principal; 2023-09-09)
DX: F10.230 Alcohol dependence with withdrawal, uncomplicated (principal); F14.20 Cocaine dependence, uncomplicated; F12.20 Cannabis dependence, uncomplicated; F19.24 Other psychoactive substance dependence with psychoactive substance-induced mood disorder; F31.9 Bipolar disorder, unspecified; F25.9 Schizoaffective disorder, unspecified; F43.10 Post-traumatic stress disorder, unspecified; F41.9 Anxiety disorder, unspecified; F98.8 Other specified behavioral and emotional disorders with onset usually occurring in childhood and adolescence; E78.5 Hyperlipidemia, unspecified; I10 Essential (primary) hypertension; J45.909 Unspecified asthma, uncomplicated; Z86.79 Personal history of other diseases of the circulatory system
CPT/HCPCS: 36415; 80048; 80053; 80305; 82140; 85025; 86780; 86803; 87389; 87491; 87591

== ENCOUNTER 2023-10-19 13:20 | Inpatient (IN) | payer OTHER ==
[2023-10-19 14:29] VITALS: BMI 36.1
[2023-10-19] MEDS ORDERED: MAG HYDROX/AL HYDROX/SIMETH 30 ML UNIT-DOSE CUP PO PRN (17:18)
[2023-10-19] MEDS ORDERED: BISMUTH SUBSALICYLATE 524 MG/30 ML PO PRN (17:18)
[2023-10-19] MEDS ORDERED: NALOXONE (NARCAN) HCL 4 MG/0.1 ML SPRAY NS PRN (17:18)
[2023-10-19] MEDS ORDERED: BENZOCAINE/MENTHOL (CHLORASEPTIC ) LOZENGE MM PRN (17:18)
[2023-10-19] MEDS ORDERED: DICYCLOMINE HCL 10 MG CAPSULE PO PRN (17:18)
[2023-10-19] MEDS ORDERED: guaiFENesin 600 MG TABLET.ER (FP) PO PRN (17:18)
[2023-10-19] MEDS ORDERED: IBUPROFEN 400 MG TABLET (FP) PO PRN (17:18)
[2023-10-19] MEDS ORDERED: BENZONATATE 200 MG CAPSULE PO PRN (17:18)
[2023-10-19] MEDS ORDERED: ONDANSETRON *ODT* 4 MG TABLET SL PRN (17:18)
[2023-10-19] MEDS ORDERED: LOPERAMIDE HCL 2 MG CAPSULE PO PRN (17:18)
[2023-10-19] MEDS ORDERED: ACETAMINOPHEN 325 MG TABLET (FP) PO PRN (17:18)
[2023-10-19] MEDS ORDERED: NALOXONE HCL 0.4 MG/ML VIAL IM PRN (17:18)
[2023-10-19] MEDS: NICOTINE 14 MG/24 HOURS TOPICAL PATCH TD SCH (17:49)
[2023-10-19] MEDS: PRENATAL VITAMINS W/ FOLIC ACID TABLET (FP) PO SCH (17:50)
[2023-10-19] MEDS: chlordiazePOXIDE HCL 25 MG CAPSULE PO SCH (17:51)
[2023-10-19] MEDS: THIAMINE 100 MG TABLET PO SCH (22:23)
[2023-10-19] MEDS: MELATONIN 5 MG TABLETS PO SCH (22:23)
[2023-10-19] MEDS: GABAPENTIN 300 MG CAPSULE PO SCH (22:25)
[2023-10-19] MEDS: METHOCARBAMOL 500 MG TABLET PO PRN (22:26)
[2023-10-19] MEDS: BUDESONIDE/FORMETEROL FUMARATE 80/4.5 mcg INHALER IH SCH (22:26)
[2023-10-20] MEDS: amLODIPine BESYLATE 5 MG TABLET (FP) PO SCH (10:20)
[2023-10-20 11:44] LABS: HEMATOCRIT 39.7 % (35.4-49); HEMOGLOBIN 13.8 GM/dL (11.7-16.9); MCH 32.1 pg (25.7-33.7); MCHC 34.7 g/dl (32.0-35.9); MEAN CELL VOLUME 92.4 fl (80-96); MEAN PLT VOLUME 9.7 fl (7.5-11.1); PLATELET COUNT 224 10^3/uL (134-434); RDW 14.1 % (11.9-15.9); WHITE BLOOD COUNT 3.9 K/mm3 (4.0-10.0)
[2023-10-20 11:53] LABS: CHLORIDE 106 mmol/L (98-107); POTASSIUM 3.7 mmol/L (3.5-5.1); SODIUM 140 mmol/L (136-145)
[2023-10-20 12:00] LABS: SGPT/ALT 42 U/L (13-61)
[2023-10-20 12:02] LABS: BILIRUBIN,TOTAL 0.5 mg/dL (0.2-1); BLOOD UREA NITROGEN 9.6 mg/dL (7-18); TOT PROT 5.9 g/dl (6.4-8.2)
[2023-10-20 12:03] LABS: ALK PHOS 71 U/L (45-117)
[2023-10-20 12:04] LABS: CALCIUM 8.2 mg/dL (8.5-10.1); GLUCOSE,RANDOM 143 mg/dL (74-106)
[2023-10-20 12:05] LABS: ALBUMIN 2.9 g/dl (3.4-5.0); ANION GAP 8 mmol/L (4-13); CO2 26 mmol/L (21-32); SGOT/AST 31 U/L (15-37)
[2023-10-20] MEDS: DEXTROAMPHETAMINE/AMPHETAMINE 20 MG CAP.ER.24H PO SCH (13:25)
[2023-10-20] MEDS: GABAPENTIN 300 MG CAPSULE PO SCH (14:45)
[2023-10-20] MEDS ORDERED: LACTULOSE 20 GM/30 ML UDC (FOR ORAL USE ONLY) PO SCH (15:15)
[2023-10-20] MEDS: LACTULOSE 20 GM/30 ML UDC (FOR ORAL USE ONLY) PO SCH (16:11)
[2023-10-20] MEDS: DEXTROAMPHETAMINE/AMPHETAMINE 10 MG CAP.ER.24H PO ONE (16:11)
[2023-10-20] MEDS: HYDROCORTISONE 1% TOPICAL CREAM 30 GM TUBE TP SCH (16:12)
[2023-10-20 18:17] LABS: HIV INTERPRETATION NEGATIVE (NEGATIVE)
[2023-10-20] MEDS: chlordiazePOXIDE HCL 25 MG CAPSULE PO PRN (20:37)
[2023-10-20] MEDS: HYDROCORTISONE ACETATE 25 MG/SUPP.RECT RC SCH (22:22)
[2023-10-20] MEDS: TOLNAFTATE 1% CREAM 15 GM TUBE TP SCH (22:22)
[2023-10-21] MEDS: MAGNESIUM HYDROX 2400MG/30ML ORAL SUSPENSION 30 ML CUP PO PRN (01:46)
[2023-10-21] MEDS: chlordiazePOXIDE HCL 25 MG CAPSULE PO SCH (05:52)
[2023-10-21] MEDS: BREXPIPRAZOLE (REXULTI) 1 MG TABLET (RESTRICTED TO PSYCIATRY) PO SCH (10:09)
[2023-10-21] MEDS: BENZOYL PEROXIDE 5% 60 GM GEL..GRAM. TP SCH (10:10)
[2023-10-21] MEDS: ALBUTEROL SO4 HFA INHALER IH PRN (11:29)
[2023-10-21] MEDS ORDERED: DEXTROAMPHETAMINE/AMPHETAMINE 20 MG CAP.ER.24H PO SCH (12:55)
[2023-10-21] MEDS ORDERED: SERTRALINE HCL 50 MG TABLET (FP) PO SCH (13:27)
[2023-10-21] MEDS: DEXTROAMPHETAMINE/AMPHETAMINE 10 MG CAP.ER.24H PO SCH (13:55)
[2023-10-21] MEDS: SERTRALINE HCL 50 MG TABLET (FP) PO ONE (17:56)
[2023-10-21] MEDS: hydrOXYzine PAMOATE 25 MG CAPSULE (FP) PO PRN (22:18)
[2023-10-21] MEDS: POLYETHYLENE GLYCOL (HEALTHYLAX) 3350 17 GM PACKET PO PRN (22:23)
[2023-10-21] MEDS: IBUPROFEN 600 MG TABLET (FP) PO PRN (22:23)
[2023-10-22] MEDS: chlordiazePOXIDE HCL 10 MG CAPSULE PO SCH (06:00)
[2023-10-22] MEDS: chlordiazePOXIDE HCL 10 MG CAPSULE PO PRN (08:31)
[2023-10-22] MEDS: SERTRALINE HCL 50 MG TABLET (FP) PO SCH (10:12)
[2023-10-22] MEDS ORDERED: SERTRALINE HCL 50 MG TABLET (FP) PO ONE (14:00)
[2023-10-22] MEDS: guaiFENesin 600 MG TABLET.ER (FP) PO ONE ×2 (19:14→20:49)
[2023-10-22] MEDS: guaiFENesin 600 MG TABLET.ER (FP) PO SCH (22:22)
[2023-10-23] MEDS: chlordiazePOXIDE HCL 10 MG CAPSULE PO SCH (05:45)
[2023-10-23 13:23] VITALS: BP 142/81; PULSE 86; RESP 19; TEMP 97.7
[2023-10-24] MEDS ORDERED: chlordiazePOXIDE HCL 10 MG CAPSULE PO ONE (05:00)
== END 2023-10-23 13:51 | disposition home or self-care (01) | DRG 897 ==
LOC: YASAS 13:20 → Y3N 17:10
PROVIDERS: ADMIT Allergy & Immunology; ATTEND Surgery
PROC: HZ2ZZZZ Detoxification Services for Substance Abuse Treatment (ICD-10-PCS; principal; 2023-10-19)
DX: F10.230 Alcohol dependence with withdrawal, uncomplicated (principal); F14.20 Cocaine dependence, uncomplicated; F12.20 Cannabis dependence, uncomplicated; F31.9 Bipolar disorder, unspecified; F19.24 Other psychoactive substance dependence with psychoactive substance-induced mood disorder; F43.10 Post-traumatic stress disorder, unspecified; F41.9 Anxiety disorder, unspecified; E78.5 Hyperlipidemia, unspecified; I11.0 Hypertensive heart disease with heart failure; I50.9 Heart failure, unspecified; J45.909 Unspecified asthma, uncomplicated; Z91.85 Personal history of military service; Z86.79 Personal history of other diseases of the circulatory system
CPT/HCPCS: 36415; 80053; 80305; 80307; 82140; 85027; 86780; 86803; 87389; 87491; 87591; 87635; 87661; 87811; 93005; 93010

== ENCOUNTER 2023-11-10 14:31 | Inpatient (IN) | payer OTHER ==
[2023-11-10 15:37] VITALS: BMI 36.6
[2023-11-10] MEDS ORDERED: ALBUTEROL SO4 HFA INHALER IH PRN (15:47)
[2023-11-10] MEDS ORDERED: DICYCLOMINE HCL 10 MG CAPSULE PO PRN (15:54)
[2023-11-10] MEDS ORDERED: IBUPROFEN 600 MG TABLET (FP) PO PRN (15:54)
[2023-11-10] MEDS ORDERED: P-EPHED 60MG/TRIPROLIDI 2.5MG TABLET PO PRN (15:54)
[2023-11-10] MEDS ORDERED: POLYETHYLENE GLYCOL (HEALTHYLAX) 3350 17 GM PACKET PO PRN (15:54)
[2023-11-10] MEDS ORDERED: BENZONATATE 200 MG CAPSULE PO PRN (15:54)
[2023-11-10] MEDS ORDERED: ACETAMINOPHEN 325 MG TABLET (FP) PO PRN (15:54)
[2023-11-10] MEDS ORDERED: BISMUTH SUBSALICYLATE 524 MG/30 ML PO PRN (15:54)
[2023-11-10] MEDS ORDERED: BENZOCAINE/MENTHOL (CHLORASEPTIC ) LOZENGE MM PRN (15:54)
[2023-11-10] MEDS ORDERED: MAG HYDROX/AL HYDROX/SIMETH 30 ML UNIT-DOSE CUP PO PRN (15:54)
[2023-11-10] MEDS ORDERED: ONDANSETRON *ODT* 4 MG TABLET SL PRN (15:54)
[2023-11-10] MEDS ORDERED: LOPERAMIDE HCL 2 MG CAPSULE PO PRN (15:54)
[2023-11-10] MEDS: chlordiazePOXIDE HCL 25 MG CAPSULE PO PRN (17:53)
[2023-11-10] MEDS: chlordiazePOXIDE HCL 25 MG CAPSULE PO SCH (22:01)
[2023-11-10] MEDS: BUDESONIDE/FORMETEROL FUMARATE 80/4.5 mcg INHALER IH SCH (22:02)
[2023-11-10] MEDS: MELATONIN 5 MG TABLETS PO SCH (22:02)
[2023-11-10] MEDS: THIAMINE 100 MG TABLET PO SCH (22:02)
[2023-11-11] MEDS: chlordiazePOXIDE HCL 25 MG CAPSULE PO SCH (05:33)
[2023-11-11] MEDS: PRENATAL VITAMINS W/ FOLIC ACID TABLET (FP) PO SCH (10:06)
[2023-11-11] MEDS: amLODIPine BESYLATE 5 MG TABLET (FP) PO SCH (10:06)
[2023-11-11] MEDS ORDERED: ALBUTEROL SO4 0.083% IH SOL 2.5 MG/3 ML VIAL.NEB. NEB PRN (11:04)
[2023-11-11] MEDS: GABAPENTIN 300 MG CAPSULE PO SCH (13:07)
[2023-11-11] MEDS: DEXTROAMPHETAMINE/AMPHETAMINE 10 MG CAP.ER.24H PO SCH (15:03)
[2023-11-11] MEDS: SERTRALINE HCL 50 MG TABLET (FP) PO SCH (15:03)
[2023-11-11] MEDS: MAGNESIUM HYDROX 2400MG/30ML ORAL SUSPENSION 30 ML CUP PO PRN (15:09)
[2023-11-11] MEDS: BREXPIPRAZOLE (REXULTI) 1 MG TABLET (RESTRICTED TO PSYCIATRY) PO SCH (15:39)
[2023-11-11] MEDS ORDERED: GABAPENTIN 300 MG CAPSULE PO SCH (22:00)
[2023-11-11] MEDS: levETIRAcetam 500 MG TABLET (FP) PO SCH (22:08)
[2023-11-11] MEDS: METHOCARBAMOL 500 MG TABLET PO PRN (22:08)
[2023-11-11] MEDS: IBUPROFEN 400 MG TABLET (FP) PO PRN (22:12)
[2023-11-12] MEDS: chlordiazePOXIDE HCL 10 MG CAPSULE PO SCH (05:47)
[2023-11-12] MEDS ORDERED: BREXPIPRAZOLE (REXULTI) 1 MG TABLET (RESTRICTED TO PSYCIATRY) PO SCH (10:00)
[2023-11-12] MEDS: NALTREXONE HCL 50 MG TABLET PO SCH (10:07)
[2023-11-12] MEDS: guaiFENesin 600 MG TABLET.ER (FP) PO PRN (12:42)
[2023-11-12] MEDS: HYDROCORTISONE 1% TOPICAL CREAM 30 GM TUBE TP PRN (13:50)
[2023-11-12] MEDS: TOLNAFTATE 1% CREAM 15 GM TUBE TP SCH (13:50)
[2023-11-12 13:54] LABS: HEMATOCRIT 41.8 % (35.4-49); HEMOGLOBIN 14.4 GM/dL (11.7-16.9); MCHC 34.5 g/dl (32.0-35.9); MEAN CELL VOLUME 92.8 fl (80-96); MEAN PLT VOLUME 9.3 fl (7.5-11.1); PLATELET COUNT 251 10^3/uL (134-434); RBC 4.51 M/mm3 (4.00-5.60); RDW 14.9 % (11.9-15.9); WHITE BLOOD COUNT 4.6 K/mm3 (4.0-10.0)
[2023-11-12 13:56] LABS: POTASSIUM 4.2 mmol/L (3.5-5.1)
[2023-11-12 14:04] LABS: ALBUMIN 3.6 g/dl (3.4-5.0); BLOOD UREA NITROGEN 9.6 mg/dL (7-18); CALCIUM 9.3 mg/dL (8.5-10.1)
[2023-11-12 14:10] LABS: BILIRUBIN,TOTAL 0.3 mg/dL (0.2-1); TOT PROT 6.6 g/dl (6.4-8.2)
[2023-11-12] MEDS ORDERED: cloNIDine HCL 0.1 MG TABLET PO PRN (14:12)
[2023-11-12 14:25] LABS: SYPHILIS W/ RPR CONF NON-REACTIVE (NONREACTIVE)
[2023-11-12] MEDS: BENZOYL PEROXIDE 5% 60 GM GEL..GRAM. TP SCH (14:27)
[2023-11-12] MEDS: HYDROCORTISONE 0.5% TOPICAL CREAM 30 GM TUBE TP SCH (14:51)
[2023-11-12 14:54] LABS: HIV INTERPRETATION NEGATIVE (NEGATIVE)
[2023-11-13] MEDS: chlordiazePOXIDE HCL 10 MG CAPSULE PO SCH (05:27)
[2023-11-13] MEDS: amLODIPine BESYLATE 10 MG TABLET (FP) PO SCH (09:39)
[2023-11-13] MEDS: chlordiazePOXIDE HCL 10 MG CAPSULE PO PRN (13:57)
[2023-11-14] MEDS: chlordiazePOXIDE HCL 10 MG CAPSULE PO ONE (05:17)
[2023-11-14 06:39] VITALS: RESP 18
[2023-11-14 09:35] VITALS: BP 127/77; PULSE 62; TEMP 98
== END 2023-11-14 13:20 | disposition home or self-care (01) | DRG 897 ==
LOC: YASAS 14:31 → Y6N 16:50
PROVIDERS: ADMIT Allergy & Immunology; ATTEND Surgery
PROC: HZ2ZZZZ Detoxification Services for Substance Abuse Treatment (ICD-10-PCS; principal; 2023-11-10)
DX: F10.230 Alcohol dependence with withdrawal, uncomplicated (principal); F14.20 Cocaine dependence, uncomplicated; F90.9 Attention-deficit hyperactivity disorder, unspecified type; F31.9 Bipolar disorder, unspecified; F43.10 Post-traumatic stress disorder, unspecified; F19.982 Other psychoactive substance use, unspecified with psychoactive substance-induced sleep disorder; F19.980 Other psychoactive substance use, unspecified with psychoactive substance-induced anxiety disorder; F19.94 Other psychoactive substance use, unspecified with psychoactive substance-induced mood disorder; I10 Essential (primary) hypertension; J45.909 Unspecified asthma, uncomplicated; B35.3 Tinea pedis; L70.9 Acne, unspecified; L30.9 Dermatitis, unspecified; M54.59 Other low back pain; G89.29 Other chronic pain; Z56.0 Unemployment, unspecified
CPT/HCPCS: 36415; 80053; 80061; 80305; 80307; 82140; 85027; 86780; 86803; 87389; 87491; 87591; 87661

== ENCOUNTER 2023-12-06 11:45 | Inpatient (IN) | payer OTHER ==
[2023-12-06 12:23] VITALS: BMI 35.6
[2023-12-06] MEDS ORDERED: NALOXONE HCL 0.4 MG/ML VIAL IM PRN (14:17)
[2023-12-06] MEDS ORDERED: ONDANSETRON *ODT* 4 MG TABLET SL PRN (14:17)
[2023-12-06] MEDS ORDERED: DICYCLOMINE HCL 10 MG CAPSULE PO PRN (14:17)
[2023-12-06] MEDS ORDERED: BENZOCAINE/MENTHOL (CHLORASEPTIC ) LOZENGE MM PRN (14:17)
[2023-12-06] MEDS ORDERED: POLYETHYLENE GLYCOL (HEALTHYLAX) 3350 17 GM PACKET PO PRN (14:17)
[2023-12-06] MEDS ORDERED: BISMUTH SUBSALICYLATE 524 MG/30 ML PO PRN (14:17)
[2023-12-06] MEDS ORDERED: IBUPROFEN 400 MG TABLET (FP) PO PRN (14:17)
[2023-12-06] MEDS ORDERED: LOPERAMIDE HCL 2 MG CAPSULE PO PRN (14:17)
[2023-12-06] MEDS ORDERED: ACETAMINOPHEN 325 MG TABLET (FP) PO PRN (14:17)
[2023-12-06] MEDS ORDERED: MAG HYDROX/AL HYDROX/SIMETH 30 ML UNIT-DOSE CUP PO PRN (14:17)
[2023-12-06] MEDS ORDERED: guaiFENesin 600 MG TABLET.ER (FP) PO PRN (14:17)
[2023-12-06] MEDS ORDERED: BENZONATATE 200 MG CAPSULE PO PRN (14:17)
[2023-12-06] MEDS ORDERED: NALOXONE (NARCAN) HCL 4 MG/0.1 ML SPRAY NS PRN (14:17)
[2023-12-06] MEDS: chlordiazePOXIDE HCL 25 MG CAPSULE PO PRN (14:51)
[2023-12-06] MEDS: chlordiazePOXIDE HCL 25 MG CAPSULE PO SCH (17:41)
[2023-12-06] MEDS: BUDESONIDE/FORMETEROL FUMARATE 80/4.5 mcg INHALER IH SCH (22:29)
[2023-12-06] MEDS: MELATONIN 5 MG TABLETS PO SCH (22:30)
[2023-12-06] MEDS: THIAMINE 100 MG TABLET PO SCH (22:30)
[2023-12-07 12:30] LABS: MCH 31.9 pg (25.7-33.7); MCHC 33.5 g/dl (32.0-35.9); MEAN CELL VOLUME 95.3 fl (80-96); MEAN PLT VOLUME 9.4 fl (7.5-11.1); PLATELET COUNT 217 10^3/uL (134-434); RDW 14.5 % (11.9-15.9); WHITE BLOOD COUNT 4.1 K/mm3 (4.0-10.0)
[2023-12-07] MEDS: PRENATAL VITAMINS W/ FOLIC ACID TABLET (FP) PO SCH (12:33)
[2023-12-07] MEDS: amLODIPine BESYLATE 5 MG TABLET (FP) PO SCH (12:33)
[2023-12-07] MEDS: DEXTROAMPHETAMINE/AMPHETAMINE 10 MG CAP.ER.24H PO SCH (12:34)
[2023-12-07] MEDS: SERTRALINE HCL 50 MG TABLET (FP) PO SCH (12:34)
[2023-12-07] MEDS: BENZOYL PEROXIDE 5% 60 GM GEL..GRAM. TP SCH (12:34)
[2023-12-07] MEDS: BREXPIPRAZOLE (REXULTI) 1 MG TABLET (RESTRICTED TO PSYCIATRY) PO SCH (12:34)
[2023-12-07 12:38] LABS: CHLORIDE 105 mmol/L (98-107); POTASSIUM 3.9 mmol/L (3.5-5.1); SODIUM 140 mmol/L (136-145)
[2023-12-07 12:41] LABS: CALCIUM 8.7 mg/dL (8.5-10.1)
[2023-12-07 12:42] LABS: ALBUMIN 2.9 g/dl (3.4-5.0); ANION GAP 8 mmol/L (4-13); BLOOD UREA NITROGEN 8.8 mg/dL (7-18); CO2 28 mmol/L (21-32); GLUCOSE,RANDOM 96 mg/dL (74-106)
[2023-12-07 12:45] LABS: CREATININE 0.8 mg/dL (0.55-1.3); SGOT/AST 25 U/L (15-37); SGPT/ALT 34 U/L (13-61)
[2023-12-07 12:46] LABS: BILIRUBIN,TOTAL 0.5 mg/dL (0.2-1); TOT PROT 5.6 g/dl (6.4-8.2)
[2023-12-07 12:47] LABS: ALK PHOS 63 U/L (45-117)
[2023-12-07] MEDS: GABAPENTIN 300 MG CAPSULE PO SCH (14:48)
[2023-12-07] MEDS: MAGNESIUM HYDROX 2400MG/30ML ORAL SUSPENSION 30 ML CUP PO PRN (18:15)
[2023-12-07] MEDS: IBUPROFEN 600 MG TABLET (FP) PO PRN (20:21)
[2023-12-07] MEDS: hydrOXYzine PAMOATE 25 MG CAPSULE (FP) PO PRN (20:21)
[2023-12-07] MEDS: ALBUTEROL SO4 HFA INHALER IH PRN (22:07)
[2023-12-07] MEDS: HYDROCORTISONE 0.5% TOPICAL CREAM 30 GM TUBE TP SCH (22:09)
[2023-12-07] MEDS: TOLNAFTATE 1% CREAM 15 GM TUBE TP SCH (22:09)
[2023-12-07] MEDS: METHOCARBAMOL 500 MG TABLET PO PRN (22:11)
[2023-12-08] MEDS: chlordiazePOXIDE HCL 25 MG CAPSULE PO SCH (05:33)
[2023-12-08] MEDS: amLODIPine BESYLATE 10 MG TABLET (FP) PO SCH (10:30)
[2023-12-08] MEDS: LACTULOSE 20 GM/30 ML UDC (FOR ORAL USE ONLY) PO SCH (13:51)
[2023-12-08 14:28] LABS: SODIUM 134 mmol/L (136-145)
[2023-12-08 19:10] LABS: BASO % 0.4 % (0-2.0); EOS % 2.7 % (0-4.5); HEMATOCRIT 42.9 % (35.4-49); HEMOGLOBIN 14.5 GM/dL (11.7-16.9); LYMPH % 21.1 % (8-40); MCH 31.5 pg (25.7-33.7); MCHC 33.9 g/dl (32.0-35.9); MEAN CELL VOLUME 93.2 fl (80-96); MEAN PLT VOLUME 9.6 fl (7.5-11.1); MONO % 9.1 % (3.8-10.2); NEUT % 66.7 % (42.8-82.8); PLATELET COUNT 250 10^3/uL (134-434); RDW 14.5 % (11.9-15.9); WHITE BLOOD COUNT 4.9 K/mm3 (4.0-10.0)
[2023-12-08 21:40] LABS: HIV INTERPRETATION NEGATIVE (NEGATIVE)
[2023-12-09] MEDS: chlordiazePOXIDE HCL 10 MG CAPSULE PO PRN (02:47)
[2023-12-09] MEDS: chlordiazePOXIDE HCL 10 MG CAPSULE PO SCH (05:45)
[2023-12-09] MEDS ORDERED: BENZOCAINE 20 % GEL TUBE MM PRN (08:12)
[2023-12-09] MEDS ORDERED: NALTREXONE HCL 50 MG TABLET PO SCH (10:00)
[2023-12-09] MEDS ORDERED: NALTREXONE MICROSPHERES (VIVITROL) 380 MG DISP.SYRIN IM ONE (10:00)
[2023-12-09] MEDS: NALTREXONE MICROSPHERES (VIVITROL) 380 MG DISP.SYRIN IM ONE (11:41)
[2023-12-09 16:50] VITALS: BP 121/67; PULSE 73; RESP 18; TEMP 97.6
[2023-12-10] MEDS ORDERED: chlordiazePOXIDE HCL 10 MG CAPSULE PO SCH (05:00)
[2023-12-11] MEDS ORDERED: chlordiazePOXIDE HCL 10 MG CAPSULE PO ONE (05:00)
== END 2023-12-09 20:02 | disposition home or self-care (01) | DRG 897 ==
LOC: YASAS 11:45 → Y3N 13:56
PROVIDERS: ADMIT Surgery; ATTEND Surgery
PROC: HZ2ZZZZ Detoxification Services for Substance Abuse Treatment (ICD-10-PCS; principal; 2023-12-06)
DX: F10.230 Alcohol dependence with withdrawal, uncomplicated (principal); F14.20 Cocaine dependence, uncomplicated; F19.282 Other psychoactive substance dependence with psychoactive substance-induced sleep disorder; F19.280 Other psychoactive substance dependence with psychoactive substance-induced anxiety disorder; F19.24 Other psychoactive substance dependence with psychoactive substance-induced mood disorder; F31.9 Bipolar disorder, unspecified; F43.10 Post-traumatic stress disorder, unspecified; F41.9 Anxiety disorder, unspecified; E78.5 Hyperlipidemia, unspecified; I10 Essential (primary) hypertension; J45.909 Unspecified asthma, uncomplicated; L20.9 Atopic dermatitis, unspecified; B35.3 Tinea pedis; M54.50 Low back pain, unspecified; G89.29 Other chronic pain
CPT/HCPCS: 36415; 80053; 80305; 80307; 85025; 85027; 86780; 86803; 87389; 87491; 87591; 87661; 93005; 93010; J2315